=== PATIENT | male | born 1955 | race African-American/Black ===

== ENCOUNTER 2019-08-25 10:26 | Inpatient (IN) | payer MEDICAID, OTHER ==
[2019-08-25] VITALS (10 sets, daily range): BP systolic 114–140; BP diastolic 62–93
[~2019-08-25] VITALS: Ht 175.3 cm; Wt 59.0 kg
[2019-08-25 11:36] LABS: BASOPHILS % 0.8 % (0.0-2.0); EOSINOPHILS % 0.1 % (0.0-5.0); LYMPHOCYTES % 18.8 % (20.0-50.0); MEAN CORPUSCULAR HEMOGLOBIN 25.5 pg (28.0-32.0); MEAN CORPUSCULAR VOLUME 78.3 fL (80.0-94.0); MEAN PLATELET VOLUME 6.7 fl (7.4-10.4); MONOCYTES % 4.4 % (2.0-8.0); NEUTROPHILS % 75.9 % (40.0-76.0); PLATELET 395 x1000/uL (130-400); RED BLOOD CELL COUNT 2.58 mill/uL (4.7-6.1); RED CELL DISTRIBUTION WIDTH 19.9 % (11.6-14.6)
[2019-08-25 11:40] LABS: CHLORIDE 100 mEq/L (98-107)
[2019-08-25 11:49] LABS: HEMATOCRIT. 20.2 % (42.0-52.0); HEMOGLOBIN. 6.6 g/dL (14.0-18.0)
[2019-08-25] MEDS ORDERED: PANTOPRAZOLE SODIUM 40 MG/VIAL IV NR (13:30)
[2019-08-25 14:26] LABS: CLARITY URINE CLEAR (CLEAR); COLOR URINE YELLOW (YELLOW); KETONES URINE NEGATIVE (NEGATIVE); LEUKOCYTE ESTERASE URINE TRACE (NEGATIVE); NITRITE URINE NEGATIVE (NEGATIVE); OCCULT BLOOD URINE NEGATIVE (NEGATIVE); PH URINE 5.5 (4.5-8.0); PROTEIN URINE NEGATIVE (NEGATIVE); SPECIFIC GRAVITY URINE 1.023 (1.005-1.030); UROBILINOGEN URINE 0.2 E.U./dL (0.2-1.0)
[2019-08-25] MEDS ORDERED: MORPHINE SULFATE 2 MG/ML CPJ (NOT FOR IM USE) IV PRN (14:45)
[2019-08-25] MEDS ORDERED: ONDANSETRON HCL 4MG/2ML INJ IV PRN (14:45)
[2019-08-25 14:48] LABS: *AMPHETAMINES SCREEN URINE NEGATIVE (NEGATIVE); *BARBITURATES SCREEN URINE NEGATIVE (NEGATIVE); *BENZODIAZEPINES SCREEN URINE PRESUMTIVE POSITIVE (NEGATIVE); *COCAINE SCREEN URINE NEGATIVE (NEGATIVE); METHADONE URINE SCREEN NEGATIVE (NEGATIVE); OPIATES URINE SCREEN PRESUMTIVE POSITIVE (NEGATIVE)
[2019-08-25 14:49] LABS: CANNABINOID URINE SCREEN NEGATIVE (NEGATIVE); PHENCYCLIDINE URINE SCREEN PRESUMTIVE POSITIVE (NEGATIVE)
[2019-08-25] MEDS ORDERED: PANTOPRAZOLE 80 MG in SODIUM CHLORIDE 0.9% 100 ML IV SCH (15:00)
[2019-08-25] MEDS: PANTOPRAZOLE 80 MG in SODIUM CHLORIDE 0.9% 100 ML IV SCH ×2 (15:29→17:42)
[2019-08-25 15:42] LABS: TOTAL IRON BINDING CAPACITY 327 ug/dL (250-450)
[2019-08-25] MEDS: SODIUM CHLORIDE 0.45% 1,000 ML IV SCH (17:51)
[2019-08-25 19:48] LABS: HEMATOCRIT 22.5 % (42.0-52.0); HEMOGLOBIN 7.5 g/dL (14.0-18.0)
[2019-08-26] VITALS (12 sets, daily range): BP systolic 100–131; BP diastolic 37–79
[2019-08-26] MEDS: PANTOPRAZOLE 80 MG in SODIUM CHLORIDE 0.9% 100 ML IV SCH (01:18)
[2019-08-26 09:32] LABS: BASOPHILS % 0.6 % (0.0-2.0); HEMATOCRIT. 24.2 % (42.0-52.0); LYMPHOCYTES % 23.9 % (20.0-50.0); MEAN CORPUSCULAR HEMOGLOBIN 27.4 pg (28.0-32.0); MEAN CORPUSCULAR VOLUME 82.5 fL (80.0-94.0); MEAN PLATELET VOLUME 7.2 fl (7.4-10.4); NEUTROPHILS % 68.5 % (40.0-76.0); PLATELET 290 x1000/uL (130-400); RED BLOOD CELL COUNT 2.93 mill/uL (4.7-6.1); RED CELL DISTRIBUTION WIDTH 18.5 % (11.6-14.6)
[2019-08-26] MEDS: SODIUM CHLORIDE 0.45% 1,000 ML IV SCH (09:33)
[2019-08-26 09:40] LABS: CHLORIDE 100 mEq/L (98-107)
[2019-08-26] MEDS ORDERED: HYDR25TA PO (12:48)
[2019-08-26] MEDS ORDERED: CEPH750C7 PO (12:48)
[2019-08-26] MEDS ORDERED: AMLO5TAB88 PO (12:48)
[2019-08-26] MEDS ORDERED: PANT40SU MT (13:42)
[2019-08-26] MEDS ORDERED: SUCR1TAB30 MT (13:43)
[2019-08-26] MEDS ORDERED: SUCRALFATE 1 G/10 ML UDC PO SCH (14:00)
[2019-08-26] MEDS ORDERED: PANTOPRAZOLE SODIUM 40 MG/VIAL IV SCH (17:00)
[2019-08-26] MEDS: PANTOPRAZOLE SODIUM 40 MG/VIAL IV SCH (21:53)
[2019-08-26] MEDS: ACETAMINOPHEN 650MG/20.3ML UDC PO PRN (21:57)
[2019-08-27] VITALS (14 sets, daily range): BP systolic 92–117; BP diastolic 43–79
[2019-08-27] MEDS: SODIUM CHLORIDE 0.45% 1,000 ML IV SCH (02:05)
[2019-08-27] MEDS ORDERED: MORPHINE SULFATE 2 MG/ML CPJ (NOT FOR IM USE) IV NR (03:25)
[2019-08-27] MEDS: PANTOPRAZOLE SODIUM 40 MG/VIAL IV SCH ×2 (09:51→20:28)
[2019-08-27] MEDS: SUCRALFATE 1G TABLET PO SCH ×3 (11:50→20:29)
[2019-08-27] MEDS ORDERED: ONDANSETRON HCL 4MG/2ML INJ IV PRN (14:30)
[2019-08-27] MEDS ORDERED: HYDROMORPHONE HCL/PF 2MG/ML CPJ IV PRN (14:30)
[2019-08-27] MEDS ORDERED: MEPERIDINE HCL/PF 25MG/ML CPJ IV PRN (14:30)
[2019-08-27] MEDS ORDERED: MORPHINE SULFATE 2 MG/ML CPJ (NOT FOR IM USE) IV PRN (14:30)
[2019-08-27] MEDS ORDERED: PROPOFOL 200MG/20ML VIAL IV ONE (14:35)
[2019-08-27] MEDS ORDERED: MIDAZOLAM HCL 2 MG/2 ML VIAL ONE (14:35)
[2019-08-27] MEDS ORDERED: SUCCINYLCHOLINE CHLORIDE 200MG/10ML IV ONE (14:35)
[2019-08-27] MEDS ORDERED: ALBUMIN HUMAN 12.5G/250ML (5%) IV ONE (14:38)
[2019-08-27] MEDS: SODIUM CHLORIDE 0.9% 1,000 ML IV NR (16:47)
[2019-08-27] MEDS: ACETAMINOPHEN 650MG/20.3ML UDC PO PRN (20:29)
[2019-08-27 21:25] LABS: BASOPHILS % 0.5 % (0.0-2.0); EOSINOPHILS % 0.7 % (0.0-5.0); LYMPHOCYTES % 21.2 % (20.0-50.0); MEAN CORPUSCULAR VOLUME 84.4 fL (80.0-94.0); MEAN PLATELET VOLUME 6.6 fl (7.4-10.4); MONOCYTES % 7.2 % (2.0-8.0); NEUTROPHILS % 70.4 % (40.0-76.0); PLATELET 244 x1000/uL (130-400); RED BLOOD CELL COUNT 1.65 mill/uL (4.7-6.1); RED CELL DISTRIBUTION WIDTH 18.6 % (11.6-14.6)
[2019-08-27 21:35] LABS: CHLORIDE 106 mEq/L (98-107); PROTHROMBIN TIME 10.8 sec (9.6-11.0)
[2019-08-27 21:49] LABS: HEMOGLOBIN. 4.6 g/dL (14.0-18.0)
[2019-08-27 21:50] LABS: HEMATOCRIT. 13.9 % (42.0-52.0)
[2019-08-27] MEDS ORDERED: POTASSIUM CHLORIDE 20MEQ TABLET SR PO NR (23:00)
[2019-08-28] VITALS (25 sets, daily range): BP systolic 2–140; BP diastolic 21–75
[2019-08-28] MEDS: SODIUM CHLORIDE 0.9% 1,000 ML IV NR ×2 (06:20→07:00)
[2019-08-28] MEDS ORDERED: DEXT 5%/0.45% NACL 500ML 1,000 ML IV ONE (06:45)
[2019-08-28] MEDS: SUCRALFATE 1G TABLET PO SCH ×3 (06:50→15:00)
[2019-08-28] MEDS ORDERED: DEXT 5%/0.45% NACL 1000ML 1,000 ML IV NR (07:15)
[2019-08-28 08:41] LABS: CHLORIDE 112 mEq/L (98-107)
[2019-08-28] MEDS: PANTOPRAZOLE SODIUM 40 MG/VIAL IV SCH (09:04)
[2019-08-28 09:45] LABS: BASOPHILS % 0.3 % (0.0-2.0); EOSINOPHILS % 0.2 % (0.0-5.0); LYMPHOCYTES % 10.6 % (20.0-50.0); MEAN CORPUSCULAR HEMOGLOBIN 28.9 pg (28.0-32.0); MEAN CORPUSCULAR VOLUME 89.5 fL (80.0-94.0); MEAN PLATELET VOLUME 6.9 fl (7.4-10.4); MONOCYTES % 7.2 % (2.0-8.0); NEUTROPHILS % 81.7 % (40.0-76.0); PLATELET 206 x1000/uL (130-400); RED BLOOD CELL COUNT 1.51 mill/uL (4.7-6.1); RED CELL DISTRIBUTION WIDTH 16.5 % (11.6-14.6)
[2019-08-28 09:53] LABS: HEMOGLOBIN. 4.4 g/dL (14.0-18.0)
[2019-08-28 09:54] LABS: HEMATOCRIT. 13.5 % (42.0-52.0)
[2019-08-28] MEDS ORDERED: POTASSIUM CHLORIDE 20MEQ/PACKET PO NR (12:57)
[2019-08-28] MEDS: METOCLOPRAMIDE HCL 10MG/2ML VIAL IV SCH ×2 (14:51→18:00)
[2019-08-28] MEDS ORDERED: IRON SUCROSE COMPLEX 100 MG/5 ML ML IV SCH (15:30)
== END 2019-08-28 19:00 | disposition left against medical advice (07) | DRG 241 ==
LOC: ER 10:26 → 3WST 14:46 → ENRESERV 14:54 → CVICU 08-28 13:29
PROVIDERS: ADMIT Family Medicine; ATTEND Family Medicine
PROC: 30233N1 Transfusion of Nonautologous Red Blood Cells into Peripheral Vein, Percutaneous Approach (ICD-10-PCS; principal; 2019-08-25)
PROC: 0DB68ZX Excision of Stomach, Via Natural or Artificial Opening Endoscopic, Diagnostic (ICD-10-PCS; 2019-08-27)
PROC: 30233K1 Transfusion of Nonautologous Frozen Plasma into Peripheral Vein, Percutaneous Approach (ICD-10-PCS; 2019-08-28)
DX: K26.4 Chronic or unspecified duodenal ulcer with hemorrhage (principal); E87.1 Hypo-osmolality and hyponatremia; E44.0 Moderate protein-calorie malnutrition; D50.9 Iron deficiency anemia, unspecified; I10 Essential (primary) hypertension; I95.9 Hypotension, unspecified; D50.0 Iron deficiency anemia secondary to blood loss (chronic); R73.9 Hyperglycemia, unspecified; K29.80 Duodenitis without bleeding; Z79.899 Other long term (current) drug therapy; Z87.11 Personal history of peptic ulcer disease; Z71.51 Drug abuse counseling and surveillance of drug abuser; Z68.1 Body mass index [BMI] 19.9 or less, adult; K29.71 Gastritis, unspecified, with bleeding
CPT/HCPCS: 36415; 71045; 73030; 74018; 80048; 80053; 80305; 81003; 82607; 82728; 82746; 82962; 83540; 83550; 83880; 84134; 84484; 85014; 85018; 85025; 85049; 85384; 86850; 86900; 86920; 86927; 88305; 88313; 93005; 99285; C9113; J0330; J2250; J2270; J2405; J2704; J2765; J7050; P9016; P9017; P9041

== ENCOUNTER 2019-08-29 13:05 | Inpatient (IN) | payer MEDICAID, OTHER ==
[~2019-08-29] VITALS: Ht 177.8 cm; Wt 80.7 kg
[~2019-08-29 13:05] MED LIST: AMLO5TAB88 PO; CEPH750C7 PO; HYDR25TA PO; PANT40SU MT; SUCR1TAB30 MT
[2019-08-29] MEDS ORDERED: SODIUM CHLORIDE 0.9% 1,000 ML IV ONE (13:22)
[2019-08-29 14:15] LABS: BASOPHILS % 0.4 % (0.0-2.0); LYMPHOCYTES % 17.7 % (20.0-50.0); MEAN CORPUSCULAR HEMOGLOBIN 30.5 pg (28.0-32.0); MEAN CORPUSCULAR VOLUME 92.8 fL (80.0-94.0); MEAN PLATELET VOLUME 7.6 fl (7.4-10.4); MONOCYTES % 5.3 % (2.0-8.0); NEUTROPHILS % 76.6 % (40.0-76.0); PLATELET 182 x1000/uL (130-400); RED BLOOD CELL COUNT 1.26 mill/uL (4.7-6.1); RED CELL DISTRIBUTION WIDTH 15.5 % (11.6-14.6)
[2019-08-29 14:25] LABS: CHLORIDE 112 mEq/L (98-107); HEMATOCRIT. 11.7 % (42.0-52.0); HEMOGLOBIN. 3.8 g/dL (14.0-18.0)
[2019-08-29] MEDS ORDERED: LORAZEPAM 2MG/ML CPJ IV ONE ×2 (14:45→16:45)
[2019-08-29 14:46] LABS: INR 1.4; PROTHROMBIN TIME 14.1 sec (9.6-11.0)
[2019-08-29] MEDS ORDERED: PIPERACILLIN/TAZ 3.375G PREMIX 50 ML IV NR (15:30)
[2019-08-29] MEDS ORDERED: DEXT 5%/0.45% NACL 1000ML 1,000 ML IV SCH (15:30)
[2019-08-29] MEDS ORDERED: ACETAMINOPHEN 325MG TABLET PO PRN (15:30)
[2019-08-29] MEDS ORDERED: HALOPERIDOL LACTATE 5MG/ML VIAL IM PRN (16:00)
[2019-08-29] MEDS: LORAZEPAM 2MG/ML CPJ IV PRN ×2 (16:15→23:33)
[2019-08-29] MEDS: SODIUM CHLORIDE 0.9% 1,000 ML IV NR ×2 (17:21→18:55)
[2019-08-29] MEDS ORDERED: MIDAZOLAM HCL 2 MG/2 ML VIAL IV ONE (18:00)
[2019-08-29] MEDS ORDERED: ETOMIDATE 2MG/ML 10ML VIAL IV ONE (18:00)
[2019-08-29] MEDS ORDERED: SUCCINYLCHOLINE CHLORIDE 200MG/10ML IV ONE (18:00)
[2019-08-29] MEDS ORDERED: MIDAZOLAM HCL 50 MG in DEXTROSE 5% WATER 40 ML IV ONE (18:00)
[2019-08-29] MEDS ORDERED: MIDAZOLAM HCL 100 MG in DEXT 5% WATER 100 ML IV ONE (18:30)
[2019-08-29] MEDS ORDERED: MIDAZOLAM HCL 100 MG in DEXT 5% WATER 80 ML IV ONE (18:30)
[2019-08-29] MEDS: SUCRALFATE 1 G/10 ML UDC PO SCH (18:52)
[2019-08-29] MEDS: PANTOPRAZOLE SODIUM 40 MG/VIAL IV SCH (21:29)
[2019-08-29] MEDS: IPRATROPIUM/ALBUTEROL 0.5-3(2.5)MG/3ML NEB HHN SCH (21:45)
[2019-08-29] MEDS ORDERED: FENTANYL CITRATE/PF 500 MCG in SODIUM CHLORIDE 0.9% 40 ML IV PRN (21:45)
[2019-08-29] MEDS ORDERED: EPINEPHRINE 1 MG in SODIUM CHLORIDE 0.9% 249 ML IV PRN ×4 (21:45)
[2019-08-29] MEDS ORDERED: IPRATROPIUM/ALBUTEROL 0.5-3(2.5)MG/3ML NEB HHN PRN (21:45)
[2019-08-29] MEDS ORDERED: PIPERACILLIN/TAZOBACTAM 3.375 G in DEXT 5% WATER 100 ML IV SCH (22:00)
[2019-08-29] MEDS ORDERED: MIDAZOLAM HCL 100 MG in DEXT 5% WATER 80 ML IV PRN (22:00)
[2019-08-29 23:40] LABS: BG BASE EXCESS -20.5 mmol/L (-2.0-2.0); BG CARBOXYHEMOGLOBIN 0.5 % (0.5-1.5); BG DEOXYHEMOGLOBIN 18.4 % (0.0-5.0); BG METHEMOGLOBIN 0.2 % (0.0-1.5); BG OXYGEN SATURATION 81.5 % (92.0-98.5); BG OXYHEMOGLOBIN 80.9 % (94.0-97.0); BG PCO2 28.4 mmHg (35.0-45.0); BG PO2 49.2 mmHg (75.0-100.0); BG SAMPLE SITE LEFT RADIAL; BG TIDAL VOLUME(mL) 500 mL; BG TOTAL HEMOGLOBIN 8.6 g/dL (12.0-18.0); BG VENT MODE VENT - A/C; BG VENT RATE 16 set
[2019-08-30] VITALS (57 sets, daily range): BP systolic 81–157; BP diastolic 24–110
[2019-08-30 01:08] LABS: CHLORIDE 120 mEq/L (98-107)
[2019-08-30] MEDS ORDERED: SODIUM BICARBONATE 8.4% 1 MEQ/ML 50ML SYR IV NR (01:30)
[2019-08-30] MEDS ORDERED: DEXTROSE 50% WATER 50ML SYRINGE IV ONE (04:49)
[2019-08-30 05:28] LABS: HEMATOCRIT. 23.1 % (42.0-52.0); HEMOGLOBIN. 7.9 g/dL (14.0-18.0); MEAN CORPUSCULAR HEMOGLOBIN 31.3 pg (28.0-32.0); MEAN CORPUSCULAR VOLUME 91.6 fL (80.0-94.0); MEAN PLATELET VOLUME 9.1 fl (7.4-10.4); RED BLOOD CELL COUNT 2.52 mill/uL (4.7-6.1); RED CELL DISTRIBUTION WIDTH 14.4 % (11.6-14.6)
[2019-08-30 05:35] LABS: PLATELET 50 x1000/uL (130-400)
[2019-08-30 05:40] LABS: HEPATITIS B SURFACE ANTIGEN NEGATIVE
[2019-08-30 05:40] LABS: D-DIMER 2.62 mg/L FEU (<0.50); INR 1.5; PARTIAL THROMBOPLASTIN TIME 42.4 sec (23.4-31.0); PROTHROMBIN TIME 15.8 sec (9.6-11.0)
[2019-08-30 05:41] LABS: HEPATITIS A AB IGM NEGATIVE (NEGATIVE)
[2019-08-30 05:46] LABS: HEMATOCRIT. 26.8 % (42.0-52.0); HEMOGLOBIN. 8.9 g/dL (14.0-18.0); MEAN CORPUSCULAR HEMOGLOBIN 31.8 pg (28.0-32.0); MEAN CORPUSCULAR VOLUME 93.9 fL (80.0-94.0); RED BLOOD CELL COUNT 2.86 mill/uL (4.7-6.1)
[2019-08-30 05:47] LABS: MEAN PLATELET VOLUME 8.4 fl (7.4-10.4); PLATELET 54 x1000/uL (130-400); RED CELL DISTRIBUTION WIDTH 14.7 % (11.6-14.6)
[2019-08-30] MEDS: LORAZEPAM 2MG/ML CPJ IV PRN (06:51)
[2019-08-30] MEDS ORDERED: LORAZEPAM 2MG/ML CPJ ONE (06:54)
[2019-08-30 08:53] LABS: BG BASE EXCESS -10.1 mmol/L (-2.0-2.0); BG CARBOXYHEMOGLOBIN 0.3 % (0.5-1.5); BG DEOXYHEMOGLOBIN 1.9 % (0.0-5.0); BG FRACTION INSPIRED OXYGEN 50; BG HCO3 ACT 15.2 mmol/L (22.0-26.0); BG METHEMOGLOBIN 0.3 % (0.0-1.5); BG OXYGEN SATURATION 98.1 % (92.0-98.5); BG OXYHEMOGLOBIN 97.5 % (94.0-97.0); BG PCO2 31.2 mmHg (35.0-45.0); BG PH 7.305 (7.350-7.450); BG PO2 129.6 mmHg (75.0-100.0); BG SAMPLE SITE RIGHT BRACHIAL; BG TIDAL VOLUME(mL) 500 mL; BG TOTAL HEMOGLOBIN 10.1 g/dL (12.0-18.0); BG VENT MODE VENT - A/C; BG VENT RATE 20 set
[2019-08-30] MEDS: IPRATROPIUM/ALBUTEROL 0.5-3(2.5)MG/3ML NEB HHN SCH ×3 (09:20→19:57)
[2019-08-30 10:00] LABS: NUCLEATED RED BLOOD CELLS 18 /100 WBC; PLATELET ESTIMATE MARKEDLY DECREASED
[2019-08-30] MEDS ORDERED: PIPERACILLIN/TAZOBACTAM 3.375 G in DEXT 5% WATER 100 ML IV SCH (10:00)
[2019-08-30] MEDS: PANTOPRAZOLE SODIUM 40 MG/VIAL IV SCH (10:12)
[2019-08-30] MEDS: PHYTONADIONE 10MG/ML AMP SUBCUT SCH (10:22)
[2019-08-30] MEDS ORDERED: VASOPRESSIN 10 UNIT in SODIUM CHLORIDE 0.9% 99.5 ML IV PRN (10:30)
[2019-08-30 10:41] LABS: HEMATOCRIT. 29.7 % (42.0-52.0); HEMOGLOBIN. 10.2 g/dL (14.0-18.0); MEAN CORPUSCULAR HEMOGLOBIN 31.8 pg (28.0-32.0); MEAN CORPUSCULAR VOLUME 92.3 fL (80.0-94.0); MEAN PLATELET VOLUME 8.1 fl (7.4-10.4); RED BLOOD CELL COUNT 3.21 mill/uL (4.7-6.1); RED CELL DISTRIBUTION WIDTH 14.5 % (11.6-14.6)
[2019-08-30 10:43] LABS: PLATELET 49 x1000/uL (130-400)
[2019-08-30] MEDS: DEXT 5%/0.45% NACL 1000ML 1,000 ML IV SCH ×2 (11:39→21:52)
[2019-08-30] MEDS ORDERED: EPINEPHRINE 0.1MG/ML (1:10,000) 10ML SYR ONE (11:48)
[2019-08-30] MEDS ORDERED: ROCURONIUM BROMIDE 10MG/ML VIAL 5ML IV ONE (11:56)
[2019-08-30] MEDS ORDERED: ETOMIDATE 2MG/ML 10ML VIAL IV ONE (11:56)
[2019-08-30 11:58] LABS: NUCLEATED RED BLOOD CELLS 8 /100 WBC; PLATELET ESTIMATE MARKEDLY DECREASED
[2019-08-30] MEDS ORDERED: SODIUM CHLORIDE 0.9% 500 ML IV ONE (12:00)
[2019-08-30] MEDS ORDERED: METOCLOPRAMIDE HCL 10MG/2ML VIAL IV NR (12:00)
[2019-08-30] MEDS ORDERED: LIDOCAINE HCL 1% 20ML VIAL (Pyxis) INJ ONE (12:09)
[2019-08-30 12:13] LABS: BG BASE EXCESS -9.1 mmol/L (-2.0-2.0); BG CARBOXYHEMOGLOBIN 0.3 % (0.5-1.5); BG FRACTION INSPIRED OXYGEN 50; BG HCO3 ACT 14.9 mmol/L (22.0-26.0); BG METHEMOGLOBIN 0.1 % (0.0-1.5); BG OXYHEMOGLOBIN 95.6 % (94.0-97.0); BG PH 7.375 (7.350-7.450); BG PO2 86.8 mmHg (75.0-100.0); BG SAMPLE SITE RIGHT RADIAL; BG TIDAL VOLUME(mL) 500 mL; BG TOTAL HEMOGLOBIN 9.1 g/dL (12.0-18.0); BG VENT MODE VENT - A/C; BG VENT RATE 22 set
[2019-08-30] MEDS ORDERED: EPINEPHRINE 1:1000 1 MG/ML AMP INJ ONE (12:40)
[2019-08-30 13:06] LABS: NUCLEATED RED BLOOD CELLS 45 /100 WBC; PLATELET ESTIMATE MARKEDLY DECREASED
[2019-08-30] MEDS: CEFEPIME 1,000 MG in DEXTROSE 5% WATER 50 ML IV SCH ×2 (13:33→23:42)
[2019-08-30] MEDS: SODIUM BICARBONATE 150 MEQ in DEXTROSE 5% WATER 1,000 ML IV SCH ×2 (13:35→23:42)
[2019-08-30 15:01] LABS: CLARITY URINE CLEAR (CLEAR); COLOR URINE YELLOW (YELLOW); KETONES URINE NEGATIVE (NEGATIVE); LEUKOCYTE ESTERASE URINE TRACE (NEGATIVE); NITRITE URINE NEGATIVE (NEGATIVE); OCCULT BLOOD URINE 2+ (NEGATIVE); PROTEIN URINE 1+ (NEGATIVE); UROBILINOGEN URINE 0.2 E.U./dL (0.2-1.0)
[2019-08-30 15:24] LABS: *AMPHETAMINES SCREEN URINE NEGATIVE (NEGATIVE); *BARBITURATES SCREEN URINE NEGATIVE (NEGATIVE); *BENZODIAZEPINES SCREEN URINE PRESUMTIVE POSITIVE (NEGATIVE); *COCAINE SCREEN URINE NEGATIVE (NEGATIVE); CANNABINOID URINE SCREEN NEGATIVE (NEGATIVE); METHADONE URINE SCREEN NEGATIVE (NEGATIVE); OPIATES URINE SCREEN PRESUMTIVE POSITIVE (NEGATIVE); PHENCYCLIDINE URINE SCREEN NEGATIVE (NEGATIVE)
[2019-08-30 17:01] LABS: MEAN CORPUSCULAR HEMOGLOBIN 31.6 pg (28.0-32.0); MEAN CORPUSCULAR VOLUME 93.3 fL (80.0-94.0); PLATELET 94 x1000/uL (130-400); RED BLOOD CELL COUNT 2.12 mill/uL (4.7-6.1); RED CELL DISTRIBUTION WIDTH 14.4 % (11.6-14.6)
[2019-08-30 17:04] LABS: HEMOGLOBIN. 6.7 g/dL (14.0-18.0)
[2019-08-30 17:06] LABS: HEMATOCRIT. 19.8 % (42.0-52.0)
[2019-08-30 17:13] LABS: INR 1.5; PROTHROMBIN TIME 15.3 sec (9.6-11.0)
[2019-08-30 17:38] LABS: PLATELET ESTIMATE DECREASED
[2019-08-30] MEDS: SUCRALFATE 1 G/10 ML UDC PO SCH ×2 (17:49→21:00)
[2019-08-30] MEDS: METOCLOPRAMIDE HCL 10MG/2ML VIAL IV SCH (23:44)
[2019-08-31] VITALS (112 sets, daily range): BP systolic 78–188; BP diastolic 44–103
[2019-08-31 01:06] LABS: HEMOGLOBIN. 7.8 g/dL (14.0-18.0); MEAN CORPUSCULAR HEMOGLOBIN 31.4 pg (28.0-32.0); MEAN CORPUSCULAR VOLUME 92.4 fL (80.0-94.0); MEAN PLATELET VOLUME 8.6 fl (7.4-10.4); PLATELET 75 x1000/uL (130-400); RED BLOOD CELL COUNT 2.49 mill/uL (4.7-6.1); RED CELL DISTRIBUTION WIDTH 14.6 % (11.6-14.6)
[2019-08-31 01:35] LABS: NUCLEATED RED BLOOD CELLS 2 /100 WBC
[2019-08-31 01:36] LABS: PLATELET ESTIMATE DECREASED
[2019-08-31] MEDS: IPRATROPIUM/ALBUTEROL 0.5-3(2.5)MG/3ML NEB HHN SCH ×4 (01:36→19:50)
[2019-08-31] MEDS: LORAZEPAM 2MG/ML CPJ IV PRN (03:22)
[2019-08-31] MEDS: FENTANYL 1,000 MCG in SODIUM CHLORIDE 0.9% 100 ML IV PRN (04:26)
[2019-08-31] MEDS: MIDAZOLAM HCL 100 MG in DEXT 5% WATER 80 ML IV PRN (04:27)
[2019-08-31 05:10] LABS: HIV SCREEN 4G Non Reactive (Non Reactive)
[2019-08-31 07:22] LABS: BG BASE EXCESS -4.6 mmol/L (-2.0-2.0); BG CARBOXYHEMOGLOBIN 0.3 % (0.5-1.5); BG FRACTION INSPIRED OXYGEN 100; BG HCO3 ACT 19.1 mmol/L (22.0-26.0); BG METHEMOGLOBIN 0.3 % (0.0-1.5); BG OXYHEMOGLOBIN 98.4 % (94.0-97.0); BG PCO2 28.6 mmHg (35.0-45.0); BG PH 7.443 (7.350-7.450); BG PO2 344.1 mmHg (75.0-100.0); BG SAMPLE SITE RIGHT RADIAL; BG TOTAL HEMOGLOBIN 5.9 g/dL (12.0-18.0); BG VENT MODE VENT - A/C; BG VENT RATE 22 set
[2019-08-31] MEDS: PANTOPRAZOLE SODIUM 40 MG/VIAL IV SCH ×2 (08:20→21:08)
[2019-08-31] MEDS: SUCRALFATE 1 G/10 ML UDC PO SCH ×4 (08:21→21:09)
[2019-08-31] MEDS: PHYTONADIONE 10MG/ML AMP SUBCUT SCH (08:21)
[2019-08-31] MEDS: METOCLOPRAMIDE HCL 10MG/2ML VIAL IV SCH ×4 (08:21→23:17)
[2019-08-31] MEDS: CEFEPIME 1,000 MG in DEXTROSE 5% WATER 50 ML IV SCH (08:22)
[2019-08-31 08:52] LABS: INR 1.5; PROTHROMBIN TIME 15.3 sec (9.6-11.0)
[2019-08-31 08:58] LABS: MEAN CORPUSCULAR HEMOGLOBIN 30.5 pg (28.0-32.0); MEAN PLATELET VOLUME 8.8 fl (7.4-10.4); RED BLOOD CELL COUNT 1.87 mill/uL (4.7-6.1); RED CELL DISTRIBUTION WIDTH 14.6 % (11.6-14.6)
[2019-08-31 09:15] LABS: HEMATOCRIT. 16.8 % (42.0-52.0); HEMOGLOBIN. 5.7 g/dL (14.0-18.0); PLATELET 44 x1000/uL (130-400)
[2019-08-31] MEDS ORDERED: NORMAL SALINE 0.9% 10 ML SYR ONE (09:45)
[2019-08-31] MEDS ORDERED: BUPIVACAINE HCL 0.5% (5MG/ML) 50ML ONE (09:45)
[2019-08-31] MEDS ORDERED: BACITRACIN 50,000 UNITS/VIAL ONE (09:45)
[2019-08-31] MEDS ORDERED: ROCURONIUM BROMIDE 10MG/ML VIAL 5ML IV ONE ×2 (10:22→11:19)
[2019-08-31] MEDS ORDERED: MIDAZOLAM HCL 2 MG/2 ML VIAL ONE (10:22)
[2019-08-31 10:43] LABS: NUCLEATED RED BLOOD CELLS 1 /100 WBC; PLATELET ESTIMATE MARKEDLY DECREASED
[2019-08-31] MEDS ORDERED: CALCIUM CHLORIDE 1GM/10ML SYR IV ONE (11:05)
[2019-08-31] MEDS ORDERED: METHYLENE BLUE 50 MG/10 ML AMP IV ONE (11:34)
[2019-08-31 12:49] LABS: HEMATOCRIT. 26.7 % (42.0-52.0); HEMOGLOBIN. 9.1 g/dL (14.0-18.0); MEAN CORPUSCULAR VOLUME 91.4 fL (80.0-94.0); MEAN PLATELET VOLUME 9.2 fl (7.4-10.4); RED BLOOD CELL COUNT 2.92 mill/uL (4.7-6.1); RED CELL DISTRIBUTION WIDTH 14.4 % (11.6-14.6)
[2019-08-31] MEDS ORDERED: MAGNESIUM 4 G PREMIX 100 ML IV SCH (13:00)
[2019-08-31 13:04] LABS: INR 1.3; PROTHROMBIN TIME 13.2 sec (9.6-11.0)
[2019-08-31] MEDS: METRONIDAZOLE 500 MG PREMIX 100 ML IV SCH ×2 (13:05→21:09)
[2019-08-31 13:10] LABS: PLATELET 38 x1000/uL (130-400)
[2019-08-31 13:45] LABS: BG BASE EXCESS -8.6 mmol/L (-2.0-2.0); BG CARBOXYHEMOGLOBIN 0.3 % (0.5-1.5); BG DEOXYHEMOGLOBIN 1.3 % (0.0-5.0); BG FRACTION INSPIRED OXYGEN 100; BG HCO3 ACT 16.8 mmol/L (22.0-26.0); BG METHEMOGLOBIN 0.3 % (0.0-1.5); BG OXYGEN SATURATION 98.7 % (92.0-98.5); BG OXYHEMOGLOBIN 98.1 % (94.0-97.0); BG PCO2 34.4 mmHg (35.0-45.0); BG PH 7.307 (7.350-7.450); BG PO2 260.7 mmHg (75.0-100.0); BG SAMPLE SITE RIGHT RADIAL; BG TIDAL VOLUME(mL) 500 mL; BG TOTAL HEMOGLOBIN 9.3 g/dL (12.0-18.0); BG VENT MODE VENT - A/C; BG VENT RATE 22 set
[2019-08-31] MEDS ORDERED: CALCIUM GLUCONATE 1,000 MG in DEXT 5% WATER 90 ML IV NR (14:00)
[2019-08-31] MEDS ORDERED: HYDRALAZINE 20MG/ML VIAL IV PRN (14:00)
[2019-08-31] MEDS: SODIUM BICARBONATE 100 MEQ in DEXTROSE 5% WATER 1,000 ML IV SCH (14:42)
[2019-08-31 18:04] LABS: HEMATOCRIT. 23.4 % (42.0-52.0); HEMOGLOBIN. 8.1 g/dL (14.0-18.0); MEAN CORPUSCULAR HEMOGLOBIN 31.1 pg (28.0-32.0); MEAN CORPUSCULAR VOLUME 90.3 fL (80.0-94.0); MEAN PLATELET VOLUME 8.4 fl (7.4-10.4); PLATELET 58 x1000/uL (130-400); RED BLOOD CELL COUNT 2.59 mill/uL (4.7-6.1); RED CELL DISTRIBUTION WIDTH 14.5 % (11.6-14.6)
[2019-08-31 19:58] LABS: NUCLEATED RED BLOOD CELLS 3 /100 WBC; PLATELET ESTIMATE MARKEDLY DECREASED
[2019-08-31 20:52] LABS: NUCLEATED RED BLOOD CELLS 1 /100 WBC
[2019-08-31 20:53] LABS: PLATELET ESTIMATE MARKEDLY DECREASED
[2019-09-01] VITALS (135 sets, daily range): BP systolic 113–288; BP diastolic -16–85
[2019-09-01 00:50] LABS: HEMATOCRIT. 21.8 % (42.0-52.0); HEMOGLOBIN. 7.6 g/dL (14.0-18.0); MEAN CORPUSCULAR HEMOGLOBIN 31.1 pg (28.0-32.0); MEAN CORPUSCULAR VOLUME 89.4 fL (80.0-94.0); PLATELET 53 x1000/uL (130-400); RED BLOOD CELL COUNT 2.44 mill/uL (4.7-6.1); RED CELL DISTRIBUTION WIDTH 14.6 % (11.6-14.6)
[2019-09-01] MEDS: IPRATROPIUM/ALBUTEROL 0.5-3(2.5)MG/3ML NEB HHN SCH ×4 (01:10→20:29)
[2019-09-01 05:40] LABS: HEMOGLOBIN. 7.1 g/dL (14.0-18.0); MEAN CORPUSCULAR HEMOGLOBIN 30.9 pg (28.0-32.0); MEAN CORPUSCULAR VOLUME 90.3 fL (80.0-94.0); MEAN PLATELET VOLUME 8.5 fl (7.4-10.4); PLATELET 54 x1000/uL (130-400); RED BLOOD CELL COUNT 2.32 mill/uL (4.7-6.1); RED CELL DISTRIBUTION WIDTH 14.9 % (11.6-14.6)
[2019-09-01] MEDS: METRONIDAZOLE 500 MG PREMIX 100 ML IV SCH ×3 (05:50→21:10)
[2019-09-01] MEDS: SODIUM BICARBONATE 100 MEQ in DEXTROSE 5% WATER 1,000 ML IV SCH ×2 (05:50→16:26)
[2019-09-01] MEDS: METOCLOPRAMIDE HCL 10MG/2ML VIAL IV SCH ×4 (05:50→23:52)
[2019-09-01 05:59] LABS: PHOSPHORUS 5.5 mg/dL (2.5-4.9)
[2019-09-01 07:38] LABS: HEMATOCRIT. 20.9 % (42.0-52.0)
[2019-09-01] MEDS: FENTANYL 1,000 MCG in SODIUM CHLORIDE 0.9% 100 ML IV PRN (08:01)
[2019-09-01] MEDS: MIDAZOLAM HCL 100 MG in DEXT 5% WATER 80 ML IV PRN (08:01)
[2019-09-01] MEDS: PANTOPRAZOLE SODIUM 40 MG/VIAL IV SCH (08:48)
[2019-09-01] MEDS: PHYTONADIONE 10MG/ML AMP SUBCUT SCH (08:49)
[2019-09-01] MEDS: SUCRALFATE 1 G/10 ML UDC PO SCH ×4 (08:49→21:10)
[2019-09-01] MEDS: CEFEPIME 1,000 MG in DEXTROSE 5% WATER 50 ML IV SCH (08:49)
[2019-09-01 08:56] LABS: BG BASE EXCESS -2.6 mmol/L (-2.0-2.0); BG CARBOXYHEMOGLOBIN 0.3 % (0.5-1.5); BG DEOXYHEMOGLOBIN 1.9 % (0.0-5.0); BG FRACTION INSPIRED OXYGEN 40; BG HCO3 ACT 21.6 mmol/L (22.0-26.0); BG METHEMOGLOBIN 0.1 % (0.0-1.5); BG OXYGEN SATURATION 98.1 % (92.0-98.5); BG OXYHEMOGLOBIN 97.7 % (94.0-97.0); BG PCO2 34.6 mmHg (35.0-45.0); BG PH 7.414 (7.350-7.450); BG SAMPLE SITE A-LINE; BG TIDAL VOLUME(mL) 500 mL; BG VENT MODE VENT - A/C; BG VENT RATE 20 set
[2019-09-01] MEDS ORDERED: KCL 20MEQ/100ML PREMIX 100 ML IV SCH (09:00)
[2019-09-01 10:37] LABS: ATYPICAL LYMPHOCYTES 1; NUCLEATED RED BLOOD CELLS 2 /100 WBC; PLATELET ESTIMATE MARKEDLY DECREASED
[2019-09-01 13:12] LABS: NUCLEATED RED BLOOD CELLS 1 /100 WBC; PLATELET ESTIMATE MARKEDLY DECREASED
[2019-09-01 13:34] LABS: HEMATOCRIT. 27.4 % (42.0-52.0); HEMOGLOBIN. 9.5 g/dL (14.0-18.0); MEAN CORPUSCULAR HEMOGLOBIN 31.2 pg (28.0-32.0); MEAN CORPUSCULAR VOLUME 89.8 fL (80.0-94.0); MEAN PLATELET VOLUME 8.4 fl (7.4-10.4); RED BLOOD CELL COUNT 3.05 mill/uL (4.7-6.1); RED CELL DISTRIBUTION WIDTH 14.4 % (11.6-14.6)
[2019-09-01 13:39] LABS: PLATELET 41 x1000/uL (130-400)
[2019-09-01 14:12] LABS: PLATELET ESTIMATE MARKEDLY DECREASED
[2019-09-01] MEDS ORDERED: POTASSIUM CHLORIDE INJ 40 MEQ in DEXT 5% WATER 250 ML IV NR (17:00)
[2019-09-01] MEDS: DEXT 5%/0.9% NACL 1,000 ML IV SCH (17:44)
[2019-09-01 18:26] LABS: HEMATOCRIT. 27.3 % (42.0-52.0); HEMOGLOBIN. 9.4 g/dL (14.0-18.0); MEAN CORPUSCULAR HEMOGLOBIN 30.9 pg (28.0-32.0); MEAN CORPUSCULAR VOLUME 89.4 fL (80.0-94.0); MEAN PLATELET VOLUME 8.7 fl (7.4-10.4); RED BLOOD CELL COUNT 3.05 mill/uL (4.7-6.1); RED CELL DISTRIBUTION WIDTH 14.9 % (11.6-14.6)
[2019-09-01 18:54] LABS: PLATELET 43 x1000/uL (130-400)
[2019-09-01 20:11] LABS: PLATELET ESTIMATE MARKEDLY DECREASED
[2019-09-02] VITALS (64 sets, daily range): BP systolic 116–171; BP diastolic 51–83
[2019-09-02 01:01] LABS: HEMATOCRIT 26.7 % (42.0-52.0); HEMOGLOBIN 9.4 g/dL (14.0-18.0)
[2019-09-02] MEDS: IPRATROPIUM/ALBUTEROL 0.5-3(2.5)MG/3ML NEB HHN SCH ×4 (01:04→20:55)
[2019-09-02] MEDS: FENTANYL 1,000 MCG in SODIUM CHLORIDE 0.9% 100 ML IV PRN ×2 (05:19→21:12)
[2019-09-02] MEDS: METRONIDAZOLE 500 MG PREMIX 100 ML IV SCH ×2 (05:20→17:32)
[2019-09-02 05:50] LABS: HEMATOCRIT. 27.5 % (42.0-52.0); HEMOGLOBIN. 9.5 g/dL (14.0-18.0); MEAN CORPUSCULAR VOLUME 89.5 fL (80.0-94.0); MEAN PLATELET VOLUME 8.8 fl (7.4-10.4); RED BLOOD CELL COUNT 3.07 mill/uL (4.7-6.1); RED CELL DISTRIBUTION WIDTH 15.2 % (11.6-14.6)
[2019-09-02 05:55] LABS: PLATELET 44 x1000/uL (130-400)
[2019-09-02 06:21] LABS: PHOSPHORUS 5.2 mg/dL (2.5-4.9)
[2019-09-02] MEDS: METOCLOPRAMIDE HCL 10MG/2ML VIAL IV SCH ×3 (06:56→17:32)
[2019-09-02] MEDS: DEXT 5%/0.9% NACL 1,000 ML IV SCH ×2 (07:16→21:13)
[2019-09-02] MEDS: PANTOPRAZOLE SODIUM 40 MG/VIAL IV SCH ×2 (08:36→21:00)
[2019-09-02] MEDS: SUCRALFATE 1 G/10 ML UDC PO SCH ×4 (08:36→21:11)
[2019-09-02] MEDS: CEFEPIME 1,000 MG in DEXTROSE 5% WATER 50 ML IV SCH (08:37)
[2019-09-02 09:29] LABS: BG SAMPLE SITE RIGHT RADIAL; BG TIDAL VOLUME(mL) 500 mL; BG VENT MODE VENT - A/C
[2019-09-02 10:18] LABS: PLATELET ESTIMATE MARKEDLY DECREASED
[2019-09-02 12:43] LABS: HEMATOCRIT 29.1 % (42.0-52.0)
[2019-09-02 18:27] LABS: HEMATOCRIT 27.6 % (42.0-52.0); HEMOGLOBIN 9.6 g/dL (14.0-18.0)
[2019-09-02 18:43] LABS: BG FRACTION INSPIRED OXYGEN 40; BG PEEP (cmH2O) 5 cmH2O; BG VENT RATE 20 set
[2019-09-02 18:44] LABS: BG PCO2 28.1 mmHg (35.0-45.0); BG PH 7.423 (7.350-7.450); BG PO2 134.3 mmHg (75.0-100.0)
[2019-09-02 18:45] LABS: BG BASE EXCESS -5.7 mmol/L (-2.0-2.0); BG HCO3 ACT 17.9 mmol/L (22.0-26.0); BG TOTAL HEMOGLOBIN 8.3 g/dL (12.0-18.0)
[2019-09-02 18:46] LABS: BG CARBOXYHEMOGLOBIN 0.3 % (0.5-1.5); BG DEOXYHEMOGLOBIN 2.1 % (0.0-5.0); BG METHEMOGLOBIN 0.6 % (0.0-1.5); BG OXYGEN SATURATION 97.9 % (92.0-98.5)
[2019-09-03] VITALS (31 sets, daily range): BP systolic 114–157; BP diastolic 61–108
[2019-09-03] MEDS: METOCLOPRAMIDE HCL 10MG/2ML VIAL IV SCH ×5 (00:30→23:50)
[2019-09-03 00:52] LABS: HEMOGLOBIN 9.7 g/dL (14.0-18.0)
[2019-09-03] MEDS: MIDAZOLAM HCL 100 MG in DEXT 5% WATER 80 ML IV PRN (05:30)
[2019-09-03] MEDS: METRONIDAZOLE 500 MG PREMIX 100 ML IV SCH ×2 (05:31→17:04)
[2019-09-03 05:46] LABS: HEMATOCRIT. 28.8 % (42.0-52.0); HEMOGLOBIN. 9.9 g/dL (14.0-18.0); MEAN CORPUSCULAR VOLUME 90.6 fL (80.0-94.0); MEAN PLATELET VOLUME 9.1 fl (7.4-10.4); PLATELET 72 x1000/uL (130-400); RED BLOOD CELL COUNT 3.18 mill/uL (4.7-6.1); RED CELL DISTRIBUTION WIDTH 15.3 % (11.6-14.6)
[2019-09-03 05:58] LABS: CHLORIDE 113 mEq/L (98-107)
[2019-09-03 07:09] LABS: *CREATININE RANDOM URINE 53.9 mg/dL (Not Estab.)
[2019-09-03 07:45] LABS: PLATELET ESTIMATE DECREASED
[2019-09-03] MEDS: SUCRALFATE 1 G/10 ML UDC PO SCH ×4 (07:50→20:27)
[2019-09-03] MEDS: IPRATROPIUM/ALBUTEROL 0.5-3(2.5)MG/3ML NEB HHN SCH ×3 (08:21→20:16)
[2019-09-03] MEDS: CEFEPIME 1,000 MG in DEXTROSE 5% WATER 50 ML IV SCH (09:00)
[2019-09-03] MEDS: PANTOPRAZOLE SODIUM 40 MG/VIAL IV SCH ×2 (09:00→20:27)
[2019-09-03 09:27] LABS: BG BASE EXCESS -3.4 mmol/L (-2.0-2.0); BG CARBOXYHEMOGLOBIN 0.3 % (0.5-1.5); BG DEOXYHEMOGLOBIN 3.1 % (0.0-5.0); BG FRACTION INSPIRED OXYGEN 40; BG HCO3 ACT 21.7 mmol/L (22.0-26.0); BG METHEMOGLOBIN 0.3 % (0.0-1.5); BG OXYGEN SATURATION 96.9 % (92.0-98.5); BG OXYHEMOGLOBIN 96.3 % (94.0-97.0); BG PCO2 39.1 mmHg (35.0-45.0); BG PH 7.362 (7.350-7.450); BG PO2 99.9 mmHg (75.0-100.0); BG SAMPLE SITE RIGHT RADIAL; BG TIDAL VOLUME(mL) 500 mL; BG TOTAL HEMOGLOBIN 9.5 g/dL (12.0-18.0); BG VENT MODE VENT - A/C; BG VENT RATE 20 set
[2019-09-03 12:12] LABS: HEMATOCRIT 30.5 % (42.0-52.0); HEMOGLOBIN 10.3 g/dL (14.0-18.0)
[2019-09-03 12:37] LABS: BG BASE EXCESS -2.2 mmol/L (-2.0-2.0); BG CARBOXYHEMOGLOBIN 0.3 % (0.5-1.5); BG DEOXYHEMOGLOBIN 3.7 % (0.0-5.0); BG FRACTION INSPIRED OXYGEN 35; BG HCO3 ACT 21.9 mmol/L (22.0-26.0); BG METHEMOGLOBIN 0.1 % (0.0-1.5); BG OXYGEN SATURATION 96.3 % (92.0-98.5); BG OXYHEMOGLOBIN 95.9 % (94.0-97.0); BG PCO2 35.2 mmHg (35.0-45.0); BG PH 7.412 (7.350-7.450); BG PO2 87.8 mmHg (75.0-100.0); BG PRESSURE SUPPORT 8; BG SAMPLE SITE RIGHT RADIAL; BG TOTAL HEMOGLOBIN 10.4 g/dL (12.0-18.0); BG VENT MODE VENT - CPAP
[2019-09-03] MEDS: DEXT 5%/0.9% NACL 1,000 ML IV SCH (17:03)
[2019-09-03 18:58] LABS: HEMATOCRIT 29.8 % (42.0-52.0); HEMOGLOBIN 10.1 g/dL (14.0-18.0)
[2019-09-03] MEDS: MORPHINE SULFATE 2 MG/ML CPJ (NOT FOR IM USE) IV PRN (21:53)
[2019-09-03] MEDS: LORAZEPAM 2MG/ML CPJ IV PRN (21:53)
[2019-09-04] VITALS (20 sets, daily range): BP systolic 125–156; BP diastolic 63–92
[2019-09-04] MEDS: IPRATROPIUM/ALBUTEROL 0.5-3(2.5)MG/3ML NEB HHN SCH ×4 (01:36→20:23)
[2019-09-04] MEDS: MORPHINE SULFATE 2 MG/ML CPJ (NOT FOR IM USE) IV PRN ×3 (02:00→19:03)
[2019-09-04] MEDS: METRONIDAZOLE 500 MG PREMIX 100 ML IV SCH ×2 (05:55→18:53)
[2019-09-04] MEDS: METOCLOPRAMIDE HCL 10MG/2ML VIAL IV SCH ×3 (06:10→17:31)
[2019-09-04] MEDS: LORAZEPAM 2MG/ML CPJ IV PRN ×3 (08:22→19:50)
[2019-09-04] MEDS: PANTOPRAZOLE SODIUM 40 MG/VIAL IV SCH ×2 (08:56→19:50)
[2019-09-04] MEDS: CEFEPIME 1,000 MG in DEXTROSE 5% WATER 50 ML IV SCH (08:56)
[2019-09-04 09:24] LABS: HEMOGLOBIN. 10.1 g/dL (14.0-18.0); MEAN CORPUSCULAR HEMOGLOBIN 30.7 pg (28.0-32.0); MEAN CORPUSCULAR VOLUME 90.9 fL (80.0-94.0); MEAN PLATELET VOLUME 8.9 fl (7.4-10.4); PLATELET 122 x1000/uL (130-400); RED CELL DISTRIBUTION WIDTH 15.3 % (11.6-14.6)
[2019-09-04] MEDS: DEXT 5%/0.45% NACL KCL 10MEQ/L 1,000 ML IV SCH (11:07)
[2019-09-04] MEDS ORDERED: CLONIDINE HCL 0.2MG/24HR PATCH TD SCH (11:30)
[2019-09-04 12:20] LABS: PLATELET ESTIMATE SLIGHTLY DECREASED
[2019-09-04] MEDS: SUCRALFATE 1 G/10 ML UDC PO SCH ×4 (12:50→19:50)
[2019-09-04 12:58] LABS: HEMATOCRIT 28.3 % (42.0-52.0); HEMOGLOBIN 9.6 g/dL (14.0-18.0)
[2019-09-04] MEDS ORDERED: POTASSIUM CHLORIDE INJ 40 MEQ in DEXT 5% WATER 250 ML IV SCH (13:00)
[2019-09-04] MEDS: RISPERIDONE 0.5MG TABLET PO SCH ×2 (14:24→19:51)
[2019-09-04 18:36] LABS: HEMATOCRIT 33.5 % (42.0-52.0); HEMOGLOBIN 11.2 g/dL (14.0-18.0)
[2019-09-04] MEDS: ONDANSETRON HCL 4MG/2ML INJ IV PRN (19:50)
[2019-09-05] VITALS (12 sets, daily range): BP systolic 132–168; BP diastolic 71–118
[2019-09-05 00:53] LABS: HEMATOCRIT 34.4 % (42.0-52.0); HEMOGLOBIN 11.6 g/dL (14.0-18.0)
[2019-09-05] MEDS: IPRATROPIUM/ALBUTEROL 0.5-3(2.5)MG/3ML NEB HHN SCH ×4 (01:14→20:10)
[2019-09-05] MEDS: LORAZEPAM 2MG/ML CPJ IV PRN ×4 (02:04→22:29)
[2019-09-05] MEDS: DEXT 5%/0.45% NACL KCL 10MEQ/L 1,000 ML IV SCH ×3 (02:04→21:40)
[2019-09-05] MEDS: ONDANSETRON HCL 4MG/2ML INJ IV PRN (04:45)
[2019-09-05] MEDS: MORPHINE SULFATE 2 MG/ML CPJ (NOT FOR IM USE) IV PRN ×3 (04:46→22:30)
[2019-09-05] MEDS: METRONIDAZOLE 500 MG PREMIX 100 ML IV SCH ×2 (06:03→18:13)
[2019-09-05] MEDS: METOCLOPRAMIDE HCL 10MG/2ML VIAL IV SCH ×4 (06:03→18:13)
[2019-09-05 06:44] LABS: HEMOGLOBIN. 9.8 g/dL (14.0-18.0); MEAN CORPUSCULAR HEMOGLOBIN 30.4 pg (28.0-32.0); MEAN CORPUSCULAR VOLUME 89.6 fL (80.0-94.0); MEAN PLATELET VOLUME 8.5 fl (7.4-10.4); PLATELET 170 x1000/uL (130-400); RED BLOOD CELL COUNT 3.24 mill/uL (4.7-6.1); RED CELL DISTRIBUTION WIDTH 15.5 % (11.6-14.6)
[2019-09-05 06:55] LABS: CHLORIDE 118 mEq/L (98-107)
[2019-09-05 07:05] LABS: PHOSPHORUS 3.4 mg/dL (2.5-4.9)
[2019-09-05] MEDS: RISPERIDONE 0.5MG TABLET PO SCH ×2 (08:16→21:40)
[2019-09-05] MEDS: SUCRALFATE 1 G/10 ML UDC PO SCH ×4 (08:16→21:40)
[2019-09-05] MEDS: PANTOPRAZOLE SODIUM 40 MG/VIAL IV SCH ×2 (08:16→21:40)
[2019-09-05 10:36] LABS: PLATELET ESTIMATE NORMAL
[2019-09-05 12:48] LABS: HEMATOCRIT 30.4 % (42.0-52.0); HEMOGLOBIN 10.3 g/dL (14.0-18.0)
[2019-09-06] VITALS (13 sets, daily range): BP systolic 111–163; BP diastolic 74–101
[2019-09-06] MEDS: METOCLOPRAMIDE HCL 10MG/2ML VIAL IV SCH ×5 (01:14→23:24)
[2019-09-06] MEDS: IPRATROPIUM/ALBUTEROL 0.5-3(2.5)MG/3ML NEB HHN SCH ×4 (02:23→20:21)
[2019-09-06] MEDS: MORPHINE SULFATE 2 MG/ML CPJ (NOT FOR IM USE) IV PRN ×2 (05:05→09:01)
[2019-09-06] MEDS: LORAZEPAM 2MG/ML CPJ IV PRN (05:05)
[2019-09-06] MEDS: DEXT 5%/0.45% NACL KCL 10MEQ/L 1,000 ML IV SCH (06:14)
[2019-09-06 06:29] LABS: BASOPHILS % 0.5 % (0.0-2.0); EOSINOPHILS % 3.9 % (0.0-5.0); HEMATOCRIT. 27.4 % (42.0-52.0); HEMOGLOBIN. 9.4 g/dL (14.0-18.0); LYMPHOCYTES % 7.5 % (20.0-50.0); MEAN CORPUSCULAR HEMOGLOBIN 30.9 pg (28.0-32.0); MEAN PLATELET VOLUME 8.7 fl (7.4-10.4); MONOCYTES % 5.8 % (2.0-8.0); NEUTROPHILS % 82.3 % (40.0-76.0); PLATELET 179 x1000/uL (130-400); RED BLOOD CELL COUNT 3.05 mill/uL (4.7-6.1); RED CELL DISTRIBUTION WIDTH 15.2 % (11.6-14.6)
[2019-09-06 07:05] LABS: PHOSPHORUS 3.1 mg/dL (2.5-4.9)
[2019-09-06] MEDS: RISPERIDONE 0.5MG TABLET PO SCH ×2 (09:00→20:29)
[2019-09-06] MEDS: SUCRALFATE 1 G/10 ML UDC PO SCH ×4 (09:00→20:29)
[2019-09-06] MEDS: PANTOPRAZOLE SODIUM 40 MG/VIAL IV SCH ×2 (09:00→20:29)
[2019-09-06] MEDS ORDERED: POTASSIUM CHLORIDE 20MEQ TABLET SR PO NR (09:30)
[2019-09-06] MEDS: DEXT 5% WATER + KCL 20MEQ/L 1,000 ML IV SCH ×2 (10:46→23:24)
[2019-09-06] MEDS: AMLODIPINE 2.5MG TABLET PO SCH (13:22)
[2019-09-06] MEDS: HYDROCODONE/ACETAMINOPHEN 5/325MG TABLET PO PRN ×3 (13:23→23:32)
[2019-09-06 16:36] LABS: HEMOGLOBIN 10.1 g/dL (14.0-18.0)
[2019-09-07] VITALS (12 sets, daily range): BP systolic 121–144; BP diastolic 73–98
[2019-09-07] MEDS: IPRATROPIUM/ALBUTEROL 0.5-3(2.5)MG/3ML NEB HHN SCH ×3 (02:10→21:40)
[2019-09-07] MEDS: METOCLOPRAMIDE HCL 10MG/2ML VIAL IV SCH ×3 (05:14→18:00)
[2019-09-07] MEDS: HYDROCODONE/ACETAMINOPHEN 5/325MG TABLET PO PRN ×4 (05:15→20:52)
[2019-09-07 08:08] LABS: PHOSPHORUS 3.5 mg/dL (2.5-4.9)
[2019-09-07 08:33] LABS: HEMATOCRIT. 29.4 % (42.0-52.0); HEMOGLOBIN. 9.8 g/dL (14.0-18.0); MEAN CORPUSCULAR HEMOGLOBIN 30.3 pg (28.0-32.0); MEAN CORPUSCULAR VOLUME 90.8 fL (80.0-94.0); PLATELET 253 x1000/uL (130-400); RED BLOOD CELL COUNT 3.24 mill/uL (4.7-6.1); RED CELL DISTRIBUTION WIDTH 15.2 % (11.6-14.6)
[2019-09-07] MEDS: RISPERIDONE 0.5MG TABLET PO SCH ×2 (10:38→20:52)
[2019-09-07] MEDS: PANTOPRAZOLE SODIUM 40 MG/VIAL IV SCH ×2 (10:38→20:51)
[2019-09-07] MEDS: SUCRALFATE 1 G/10 ML UDC PO SCH ×4 (10:38→20:52)
[2019-09-07] MEDS: AMLODIPINE 2.5MG TABLET PO SCH (10:39)
[2019-09-07 14:19] LABS: PLATELET ESTIMATE NORMAL
[2019-09-07] MEDS: TAMSULOSIN HCL 0.4MG SR CAPSULE PO SCH (16:15)
[2019-09-08] VITALS (14 sets, daily range): BP systolic 131–153; BP diastolic 59–94
[2019-09-08] MEDS: METOCLOPRAMIDE HCL 10MG/2ML VIAL IV SCH ×3 (00:20→13:07)
[2019-09-08] MEDS: HYDROCODONE/ACETAMINOPHEN 5/325MG TABLET PO PRN ×4 (00:50→20:24)
[2019-09-08] MEDS: IPRATROPIUM/ALBUTEROL 0.5-3(2.5)MG/3ML NEB HHN SCH ×4 (01:13→20:56)
[2019-09-08] MEDS: SUCRALFATE 1 G/10 ML UDC PO SCH ×3 (10:07→20:27)
[2019-09-08] MEDS: PANTOPRAZOLE SODIUM 40 MG/VIAL IV SCH ×2 (10:08→20:27)
[2019-09-08] MEDS: TAMSULOSIN HCL 0.4MG SR CAPSULE PO SCH (10:08)
[2019-09-08] MEDS: RISPERIDONE 0.5MG TABLET PO SCH ×2 (10:09→20:27)
[2019-09-08 11:29] LABS: HEMOGLOBIN. 9.3 g/dL (14.0-18.0); MEAN CORPUSCULAR HEMOGLOBIN 30.3 pg (28.0-32.0); MEAN CORPUSCULAR VOLUME 90.8 fL (80.0-94.0); MEAN PLATELET VOLUME 8.5 fl (7.4-10.4); PLATELET 313 x1000/uL (130-400); RED BLOOD CELL COUNT 3.08 mill/uL (4.7-6.1); RED CELL DISTRIBUTION WIDTH 15.2 % (11.6-14.6)
[2019-09-08 13:02] LABS: PLATELET ESTIMATE NORMAL
[2019-09-08] MEDS: LORAZEPAM 2MG/ML CPJ IV PRN (20:25)
[2019-09-08] MEDS: ONDANSETRON HCL 4MG/2ML INJ IV PRN (20:25)
[2019-09-09] VITALS (10 sets, daily range): BP systolic 133–159; BP diastolic 71–98
[2019-09-09] MEDS: CAPSAICIN 0.025% CREAM 60GM TOP PRN (00:43)
[2019-09-09] MEDS: HYDROCODONE/ACETAMINOPHEN 5/325MG TABLET PO PRN ×3 (00:44→20:29)
[2019-09-09] MEDS: METOCLOPRAMIDE HCL 10MG/2ML VIAL IV SCH ×5 (00:45→23:40)
[2019-09-09] MEDS: IPRATROPIUM/ALBUTEROL 0.5-3(2.5)MG/3ML NEB HHN SCH ×4 (02:55→20:52)
[2019-09-09] MEDS: SUCRALFATE 1 G/10 ML UDC PO SCH ×4 (07:30→20:25)
[2019-09-09] MEDS: PANTOPRAZOLE SODIUM 40 MG/VIAL IV SCH ×2 (08:57→20:25)
[2019-09-09] MEDS: RISPERIDONE 0.5MG TABLET PO SCH ×2 (08:57→20:25)
[2019-09-09] MEDS: TAMSULOSIN HCL 0.4MG SR CAPSULE PO SCH (08:58)
[2019-09-09] MEDS ORDERED: DOXAZOSIN MESYLATE 2MG TABLET PO SCH (21:00)
[2019-09-10] VITALS: BP 133/67
[2019-09-10] MEDS: IPRATROPIUM/ALBUTEROL 0.5-3(2.5)MG/3ML NEB HHN SCH ×4 (01:36→21:28)
[2019-09-10 04:00] VITALS: BP 139/73
[2019-09-10] MEDS: CAPSAICIN 0.025% CREAM 60GM TOP PRN (05:47)
[2019-09-10] MEDS: SUCRALFATE 1 G/10 ML UDC PO SCH ×4 (06:41→20:51)
[2019-09-10] MEDS: METOCLOPRAMIDE HCL 10MG/2ML VIAL IV SCH ×4 (06:41→23:59)
[2019-09-10 08:00] VITALS: BP 154/81
[2019-09-10] MEDS: RISPERIDONE 0.5MG TABLET PO SCH ×2 (08:54→20:50)
[2019-09-10] MEDS: PANTOPRAZOLE SODIUM 40 MG/VIAL IV SCH ×2 (08:54→20:51)
[2019-09-10] MEDS: HYDROCODONE/ACETAMINOPHEN 5/325MG TABLET PO PRN ×2 (08:55→14:37)
[2019-09-10 11:40] VITALS: BP 132/74
[2019-09-10] MEDS ORDERED: CLON1PAT11 TD (12:26)
[2019-09-10] MEDS ORDERED: OMEP20TA2 MT (12:26)
[2019-09-10] MEDS ORDERED: DOXA4TAB2 PO (12:26)
[2019-09-10] MEDS ORDERED: SUCR1ORA15 PO (12:26)
[2019-09-10] MEDS ORDERED: HYDRALAZINE 10 MG in SODIUM CHLORIDE 0.9% 49.5 ML IV PRN (13:45)
[2019-09-10 17:27] LABS: BASOPHILS % 1.3 % (0.0-2.0); EOSINOPHILS % 1.8 % (0.0-5.0); HEMATOCRIT. 25.6 % (42.0-52.0); HEMOGLOBIN. 8.6 g/dL (14.0-18.0); LYMPHOCYTES % 10.3 % (20.0-50.0); MEAN CORPUSCULAR HEMOGLOBIN 30.3 pg (28.0-32.0); MEAN CORPUSCULAR VOLUME 89.9 fL (80.0-94.0); MONOCYTES % 7.5 % (2.0-8.0); NEUTROPHILS % 79.1 % (40.0-76.0); PLATELET 376 x1000/uL (130-400); RED BLOOD CELL COUNT 2.85 mill/uL (4.7-6.1); RED CELL DISTRIBUTION WIDTH 15.5 % (11.6-14.6)
[2019-09-10 17:32] LABS: CHLORIDE 111 mEq/L (98-107)
[2019-09-10 17:38] LABS: PHOSPHORUS 3.7 mg/dL (2.5-4.9)
[2019-09-10 20:00] VITALS: BP 136/70
[2019-09-10] MEDS: DOXAZOSIN MESYLATE 4MG TABLET PO SCH (20:48)
[2019-09-11] MEDS: IPRATROPIUM/ALBUTEROL 0.5-3(2.5)MG/3ML NEB HHN SCH ×4 (03:07→20:20)
[2019-09-11] MEDS: HYDROCODONE/ACETAMINOPHEN 5/325MG TABLET PO PRN ×2 (03:29→10:58)
[2019-09-11 04:00] VITALS: BP 128/69
[2019-09-11] MEDS: METOCLOPRAMIDE HCL 10MG/2ML VIAL IV SCH ×4 (06:17→23:57)
[2019-09-11] MEDS: SUCRALFATE 1 G/10 ML UDC PO SCH ×4 (06:34→21:19)
[2019-09-11 08:00] VITALS: BP 120/65
[2019-09-11] MEDS: PANTOPRAZOLE SODIUM 40 MG/VIAL IV SCH ×2 (08:40→21:20)
[2019-09-11] MEDS: RISPERIDONE 0.5MG TABLET PO SCH ×2 (08:42→21:19)
[2019-09-11] MEDS: CLONIDINE HCL 0.2MG/24HR PATCH TD SCH (11:01)
[2019-09-11 12:00] VITALS: BP 141/83
[2019-09-11 16:00] VITALS: BP 140/75
[2019-09-11] MEDS: HYDROCODONE/ACETAMINOPHEN 10/325MG TABLET PO PRN (18:58)
[2019-09-11 20:00] VITALS: BP 137/85
[2019-09-11 21:02] LABS: BASOPHILS % 1.8 % (0.0-2.0); EOSINOPHILS % 2.1 % (0.0-5.0); HEMATOCRIT. 28.5 % (42.0-52.0); HEMOGLOBIN. 9.4 g/dL (14.0-18.0); MEAN CORPUSCULAR HEMOGLOBIN 29.5 pg (28.0-32.0); MEAN CORPUSCULAR VOLUME 89.8 fL (80.0-94.0); MONOCYTES % 10.7 % (2.0-8.0); NEUTROPHILS % 69.4 % (40.0-76.0); PLATELET 536 x1000/uL (130-400); RED BLOOD CELL COUNT 3.17 mill/uL (4.7-6.1); RED CELL DISTRIBUTION WIDTH 14.9 % (11.6-14.6)
[2019-09-11 21:13] LABS: PHOSPHORUS 3.5 mg/dL (2.5-4.9)
[2019-09-11] MEDS: DOXAZOSIN MESYLATE 4MG TABLET PO SCH (21:19)
[2019-09-12] VITALS: BP 147/73
[2019-09-12] MEDS: IPRATROPIUM/ALBUTEROL 0.5-3(2.5)MG/3ML NEB HHN SCH ×4 (01:11→20:15)
[2019-09-12 04:00] VITALS: BP 115/74
[2019-09-12] MEDS: HYDROCODONE/ACETAMINOPHEN 10/325MG TABLET PO PRN ×3 (05:00→18:48)
[2019-09-12] MEDS: METOCLOPRAMIDE HCL 10MG/2ML VIAL IV SCH ×3 (05:00→18:48)
[2019-09-12] MEDS: SUCRALFATE 1 G/10 ML UDC PO SCH ×4 (06:28→20:47)
[2019-09-12] MEDS: RISPERIDONE 0.5MG TABLET PO SCH ×2 (09:02→20:46)
[2019-09-12] MEDS: PANTOPRAZOLE SODIUM 40 MG/VIAL IV SCH ×2 (09:02→20:47)
[2019-09-12] MEDS ORDERED: MAGNESIUM 2 G PREMIX 50 ML IV SCH (10:00)
[2019-09-12 20:00] VITALS: BP 144/71
[2019-09-12] MEDS: DOXAZOSIN MESYLATE 4MG TABLET PO SCH (21:47)
[2019-09-13] VITALS: BP 153/75
[2019-09-13] MEDS: METOCLOPRAMIDE HCL 10MG/2ML VIAL IV SCH ×2 (00:31→06:00)
[2019-09-13] MEDS: HYDROCODONE/ACETAMINOPHEN 10/325MG TABLET PO PRN ×3 (00:56→17:08)
[2019-09-13] MEDS: IPRATROPIUM/ALBUTEROL 0.5-3(2.5)MG/3ML NEB HHN SCH (02:12)
[2019-09-13] MEDS: SUCRALFATE 1 G/10 ML UDC PO SCH ×4 (06:54→21:04)
[2019-09-13] MEDS: RISPERIDONE 0.5MG TABLET PO SCH ×2 (09:00→21:05)
[2019-09-13] MEDS: PANTOPRAZOLE SODIUM 40 MG/VIAL IV SCH ×2 (09:00→21:04)
[2019-09-13 10:22] VITALS: BP 116/52
[2019-09-13 20:00] VITALS: BP 145/80
[2019-09-13] MEDS: DOXAZOSIN MESYLATE 4MG TABLET PO SCH (21:04)
[2019-09-13] MEDS: MORPHINE SULFATE 2 MG/ML CPJ (NOT FOR IM USE) IV PRN (21:05)
[2019-09-14] VITALS: BP 120/72
[2019-09-14] MEDS: MORPHINE SULFATE 2 MG/ML CPJ (NOT FOR IM USE) IV PRN ×5 (01:07→21:20)
[2019-09-14 04:00] VITALS: BP 123/66
[2019-09-14] MEDS: SUCRALFATE 1 G/10 ML UDC PO SCH ×4 (06:20→21:18)
[2019-09-14 08:00] VITALS: BP 108/61
[2019-09-14] MEDS: PANTOPRAZOLE SODIUM 40 MG/VIAL IV SCH ×2 (08:33→21:22)
[2019-09-14] MEDS: RISPERIDONE 0.5MG TABLET PO SCH ×2 (08:33→21:18)
[2019-09-14 12:00] VITALS: BP 114/65
[2019-09-14 20:00] VITALS: BP 127/72
[2019-09-14] MEDS: DOXAZOSIN MESYLATE 4MG TABLET PO SCH (21:00)
[2019-09-15] VITALS: BP 131/75
[2019-09-15] MEDS: MORPHINE SULFATE 2 MG/ML CPJ (NOT FOR IM USE) IV PRN ×4 (02:02→20:30)
[2019-09-15 04:00] VITALS: BP 123/74
[2019-09-15] MEDS: CAPSAICIN 0.025% CREAM 60GM TOP PRN (04:47)
[2019-09-15] MEDS: SUCRALFATE 1 G/10 ML UDC PO SCH ×4 (06:28→20:28)
[2019-09-15 08:00] VITALS: BP 126/71
[2019-09-15] MEDS: RISPERIDONE 0.5MG TABLET PO SCH ×2 (09:04→20:28)
[2019-09-15] MEDS: PANTOPRAZOLE SODIUM 40 MG/VIAL IV SCH ×2 (09:04→20:29)
[2019-09-15 12:00] VITALS: BP 126/70
[2019-09-15 20:00] VITALS: BP 130/68
[2019-09-15] MEDS: DOXAZOSIN MESYLATE 4MG TABLET PO SCH (20:28)
[2019-09-16] VITALS: BP 139/76
[2019-09-16] MEDS: MORPHINE SULFATE 2 MG/ML CPJ (NOT FOR IM USE) IV PRN ×4 (00:56→23:11)
[2019-09-16 04:00] VITALS: BP 136/65
[2019-09-16] MEDS: SUCRALFATE 1 G/10 ML UDC PO SCH ×4 (06:32→21:00)
[2019-09-16] MEDS: PANTOPRAZOLE SODIUM 40 MG/VIAL IV SCH ×2 (09:42→21:00)
[2019-09-16] MEDS: RISPERIDONE 0.5MG TABLET PO SCH ×2 (09:42→21:00)
[2019-09-16 16:00] VITALS: BP 141/82
[2019-09-16 18:14] LABS: BASOPHILS % 1.3 % (0.0-2.0); EOSINOPHILS % 1.7 % (0.0-5.0); HEMATOCRIT. 27.3 % (42.0-52.0); HEMOGLOBIN. 9.2 g/dL (14.0-18.0); LYMPHOCYTES % 14.1 % (20.0-50.0); MEAN CORPUSCULAR HEMOGLOBIN 29.8 pg (28.0-32.0); MEAN CORPUSCULAR VOLUME 88.2 fL (80.0-94.0); MEAN PLATELET VOLUME 6.8 fl (7.4-10.4); MONOCYTES % 11.4 % (2.0-8.0); NEUTROPHILS % 71.5 % (40.0-76.0); PLATELET 496 x1000/uL (130-400); RED CELL DISTRIBUTION WIDTH 14.8 % (11.6-14.6)
[2019-09-16 18:23] LABS: CHLORIDE 111 mEq/L (98-107)
[2019-09-16 20:00] VITALS: BP 137/75
[2019-09-16] MEDS: DOXAZOSIN MESYLATE 4MG TABLET PO SCH (21:00)
[2019-09-16] MEDS ORDERED: MAGNESIUM 2 G PREMIX 50 ML IV NR (21:00)
[2019-09-17] VITALS: BP 143/90
[2019-09-17] MEDS: MORPHINE SULFATE 2 MG/ML CPJ (NOT FOR IM USE) IV PRN ×4 (03:14→22:16)
[2019-09-17 04:00] VITALS: BP 123/80
[2019-09-17] MEDS: SUCRALFATE 1 G/10 ML UDC PO SCH ×4 (06:30→22:13)
[2019-09-17 08:00] VITALS: BP 120/78
[2019-09-17] MEDS: PANTOPRAZOLE SODIUM 40 MG/VIAL IV SCH ×3 (08:56→22:13)
[2019-09-17] MEDS: RISPERIDONE 0.5MG TABLET PO SCH ×3 (09:00→22:14)
[2019-09-17] MEDS: CAPSAICIN 0.025% CREAM 60GM TOP PRN (10:15)
[2019-09-17 12:00] VITALS: BP 108/68
[2019-09-17] MEDS: HYDROCODONE/ACETAMINOPHEN 5/325MG TABLET PO PRN (13:58)
[2019-09-17 16:00] VITALS: BP 126/69
[2019-09-17] MEDS: DOXAZOSIN MESYLATE 4MG TABLET PO SCH ×2 (22:13→22:14)
[2019-09-18] VITALS: BP 129/78
[2019-09-18] MEDS: MORPHINE SULFATE 2 MG/ML CPJ (NOT FOR IM USE) IV PRN ×3 (02:11→14:57)
[2019-09-18 04:00] VITALS: BP 142/72
[2019-09-18] MEDS: HYDROCODONE/ACETAMINOPHEN 5/325MG TABLET PO PRN ×2 (05:02→12:00)
[2019-09-18] MEDS: SUCRALFATE 1 G/10 ML UDC PO SCH ×2 (05:02→12:20)
[2019-09-18 05:19] LABS: CHLORIDE 110 mEq/L (98-107)
[2019-09-18 05:25] LABS: PHOSPHORUS 2.8 mg/dL (2.5-4.9)
[2019-09-18 05:53] LABS: BASOPHILS % 0.3 % (0.0-2.0); EOSINOPHILS % 2.2 % (0.0-5.0); HEMATOCRIT. 25.1 % (42.0-52.0); HEMOGLOBIN. 8.6 g/dL (14.0-18.0); LYMPHOCYTES % 15.4 % (20.0-50.0); MEAN CORPUSCULAR HEMOGLOBIN 29.9 pg (28.0-32.0); MEAN CORPUSCULAR VOLUME 87.5 fL (80.0-94.0); MEAN PLATELET VOLUME 6.9 fl (7.4-10.4); MONOCYTES % 12.4 % (2.0-8.0); NEUTROPHILS % 69.7 % (40.0-76.0); PLATELET 430 x1000/uL (130-400); RED BLOOD CELL COUNT 2.87 mill/uL (4.7-6.1); RED CELL DISTRIBUTION WIDTH 14.9 % (11.6-14.6)
[2019-09-18] MEDS: CLONIDINE HCL 0.2MG/24HR PATCH TD SCH (09:00)
[2019-09-18] MEDS: RISPERIDONE 0.5MG TABLET PO SCH (09:19)
[2019-09-18] MEDS: PANTOPRAZOLE SODIUM 40 MG/VIAL IV SCH (09:19)
[2019-09-18 12:00] VITALS: BP 115/60
[2019-09-18] MEDS ORDERED: POTASSIUM CHLORIDE 20MEQ TABLET SR PO NR (12:15)
[2019-09-18 13:31] VITALS: BP 115/60
[2019-09-18 14:57] VITALS: BP 115/60
== END 2019-09-18 18:45 | disposition home or self-care (01) | DRG 720 ==
LOC: ER 13:05 → EDBEDREQSVC 15:02 → EDBEDREQ 15:02 → EDBEDREQTM 15:02 → MICUSO 22:58 → CVICU 08-30 09:15 → 5EST 09-04 13:19 → 6EST 09-10 13:34
PROVIDERS: ADMIT Internal Medicine; ATTEND Internal Medicine
PROC: 5A1955Z Respiratory Ventilation, Greater than 96 Consecutive Hours (ICD-10-PCS; 2019-08-29)
PROC: 30233K1 Transfusion of Nonautologous Frozen Plasma into Peripheral Vein, Percutaneous Approach (ICD-10-PCS; 2019-08-29)
PROC: 0W3P8ZZ Control Bleeding in Gastrointestinal Tract, Via Natural or Artificial Opening Endoscopic (ICD-10-PCS; 2019-08-30)
PROC: 02HV33Z Insertion of Infusion Device into Superior Vena Cava, Percutaneous Approach (ICD-10-PCS; 2019-08-30)
PROC: B548ZZA Ultrasonography of Superior Vena Cava, Guidance (ICD-10-PCS; 2019-08-30)
PROC: 30233N1 Transfusion of Nonautologous Red Blood Cells into Peripheral Vein, Percutaneous Approach (ICD-10-PCS; 2019-08-30)
PROC: 0DQ78ZZ Repair Stomach, Pylorus, Via Natural or Artificial Opening Endoscopic (ICD-10-PCS; principal; 2019-08-31)
PROC: 0D968ZZ Drainage of Stomach, Via Natural or Artificial Opening Endoscopic (ICD-10-PCS; 2019-08-31)
PROC: 0DHA8UZ Insertion of Feeding Device into Jejunum, Via Natural or Artificial Opening Endoscopic (ICD-10-PCS; 2019-08-31)
PROC: 30233R1 Transfusion of Nonautologous Platelets into Peripheral Vein, Percutaneous Approach (ICD-10-PCS; 2019-08-31)
PROC: 30233M1 Transfusion of Nonautologous Plasma Cryoprecipitate into Peripheral Vein, Percutaneous Approach (ICD-10-PCS; 2019-08-31)
DX: A41.9 Sepsis, unspecified organism (principal); E43 Unspecified severe protein-calorie malnutrition; E87.8 Other disorders of electrolyte and fluid balance, not elsewhere classified; E87.1 Hypo-osmolality and hyponatremia; I10 Essential (primary) hypertension; J96.00 Acute respiratory failure, unspecified whether with hypoxia or hypercapnia; R57.8 Other shock; G93.40 Encephalopathy, unspecified; K85.90 Acute pancreatitis without necrosis or infection, unspecified; R65.21 Severe sepsis with septic shock; K72.00 Acute and subacute hepatic failure without coma; N17.0 Acute kidney failure with tubular necrosis; F16.10 Hallucinogen abuse, uncomplicated; F15.10 Other stimulant abuse, uncomplicated; F11.10 Opioid abuse, uncomplicated; E87.2 Acidosis; D50.9 Iron deficiency anemia, unspecified; D62 Acute posthemorrhagic anemia; E87.0 Hyperosmolality and hypernatremia; E83.51 Hypocalcemia; E83.42 Hypomagnesemia; D65 Disseminated intravascular coagulation [defibrination syndrome]; S51.811A Laceration without foreign body of right forearm, initial encounter; X58.XXXA Exposure to other specified factors, initial encounter; R57.1 Hypovolemic shock; J69.0 Pneumonitis due to inhalation of food and vomit; K26.0 Acute duodenal ulcer with hemorrhage; D72.810 Lymphocytopenia; K29.81 Duodenitis with bleeding; K29.51 Unspecified chronic gastritis with bleeding; Z79.899 Other long term (current) drug therapy; Z68.25 Body mass index [BMI] 25.0-25.9, adult; Z59.0 Homelessness; Y93.89 Activity, other specified; Y92.89 Other specified places as the place of occurrence of the external cause; Y99.8 Other external cause status; Z78.1 Physical restraint status; Z82.49 Family history of ischemic heart disease and other diseases of the circulatory system; Z93.4 Other artificial openings of gastrointestinal tract status
CPT/HCPCS: 36415; 36600; 71045; 74176; 76770; 76937; 80048; 80053; 80076; 80305; 81003; 82040; 82043; 82140; 82330; 82375; 82550; 82570; 82805; 82941; 82962; 83605; 83735; 83880; 83935; 84100; 84134; 84300; 84443; 85014; 85018; 85025; 85379; 85384; 86705; 86709; 86803; 86850; 86900; 86920; 86927; 87070; 87106; 87340; 87389; 92610; 93005; 93970; 94002; 94003; 94640; 97110; 97162; 97530; 97535; 99291; C1725; C9113; J0360; J0610; J0692; J1630; J2060; J2250; J2270; J2405; J2543; J2765; J3010; J3430; J3475; J3480; J3490; J7030; J7042; J7050; J7060; J7070; P9012; P9016; P9017; P9021; P9034; Q9968

== ENCOUNTER 2019-09-30 07:55 | Inpatient (IN) | payer MEDICAID, OTHER ==
[~2019-09-30] VITALS: Ht 175.3 cm; Wt 64.9 kg
[2019-09-30 09:01] LABS: BASOPHILS % 0.8 % (0.0-2.0); EOSINOPHILS % 0.9 % (0.0-5.0); LYMPHOCYTES % 20.4 % (20.0-50.0); MEAN CORPUSCULAR HEMOGLOBIN 29.2 pg (28.0-32.0); MEAN CORPUSCULAR VOLUME 87.6 fL (80.0-94.0); MEAN PLATELET VOLUME 6.2 fl (7.4-10.4); MONOCYTES % 9.4 % (2.0-8.0); NEUTROPHILS % 68.5 % (40.0-76.0); PLATELET 526 x1000/uL (130-400); RED BLOOD CELL COUNT 1.97 mill/uL (4.7-6.1); RED CELL DISTRIBUTION WIDTH 15.4 % (11.6-14.6)
[2019-09-30 09:03] LABS: HEMATOCRIT. 17.3 % (42.0-52.0); HEMOGLOBIN. 5.8 g/dL (14.0-18.0)
[2019-09-30 09:07] LABS: CHLORIDE 108 mEq/L (98-107)
[2019-09-30 09:10] LABS: INR 1.1; PROTHROMBIN TIME 11.5 sec (9.6-11.0)
[2019-09-30] MEDS ORDERED: AZITHROMYCIN 500 MG TABLET PO SCH (11:53)
[2019-09-30] MEDS ORDERED: CEFTRIAXONE 1,000 MG in DEXTROSE 5% WATER 50 ML IV SCH (12:00)
[2019-09-30] MEDS ORDERED: ONDANSETRON HCL 4MG/2ML INJ IV PRN (12:00)
[2019-09-30] MEDS: HYDROCODONE/ACETAMINOPHEN 10/325MG TABLET PO PRN (12:29)
[2019-09-30] MEDS: SUCRALFATE 1G TABLET PO SCH ×3 (13:02→21:00)
[2019-09-30 15:03] LABS: MEAN CORPUSCULAR HEMOGLOBIN 29.7 pg (28.0-32.0); MEAN CORPUSCULAR VOLUME 85.9 fL (80.0-94.0); PLATELET 495 x1000/uL (130-400); RED BLOOD CELL COUNT 2.28 mill/uL (4.7-6.1); RED CELL DISTRIBUTION WIDTH 14.9 % (11.6-14.6)
[2019-09-30 15:03] LABS: CLARITY URINE CLEAR (CLEAR); COLOR URINE YELLOW (YELLOW); KETONES URINE NEGATIVE (NEGATIVE); LEUKOCYTE ESTERASE URINE NEGATIVE (NEGATIVE); NITRITE URINE NEGATIVE (NEGATIVE); OCCULT BLOOD URINE NEGATIVE (NEGATIVE); PROTEIN URINE NEGATIVE (NEGATIVE); SPECIFIC GRAVITY URINE 1.022 (1.005-1.030)
[2019-09-30 15:08] LABS: HEMATOCRIT 19.6 % (42.0-52.0); HEMOGLOBIN 6.8 g/dL (14.0-18.0)
[2019-09-30] MEDS ORDERED: IOHEXOL-300 100 ML BOTTLE ONE (15:20)
[2019-09-30] MEDS: SUCRALFATE 1 G/10 ML UDC PO SCH (20:34)
[2019-09-30 20:40] LABS: TOTAL IRON BINDING CAPACITY 207 ug/dL (250-450)
[2019-09-30 21:05] LABS: FERRITIN 175 ng/mL (22-322)
[2019-09-30] MEDS: METOCLOPRAMIDE HCL 10MG/2ML VIAL IV SCH (21:05)
[2019-09-30 21:20] LABS: VITAMIN B12 SERUM 525 pg/mL (211-911)
[2019-10-01] VITALS (13 sets, daily range): BP systolic 112–145; BP diastolic 55–109
[2019-10-01] MEDS: LORAZEPAM 2MG/ML CPJ IV PRN (03:22)
[2019-10-01] MEDS: HYDROCODONE/ACETAMINOPHEN 10/325MG TABLET PO PRN ×3 (03:22→21:57)
[2019-10-01] MEDS: METOCLOPRAMIDE HCL 10MG/2ML VIAL IV SCH ×3 (05:51→21:57)
[2019-10-01] MEDS: OMEPRAZOLE 20MG CAPSULE EXTENDED RELEASE PO SCH (08:30)
[2019-10-01] MEDS: SUCRALFATE 1 G/10 ML UDC PO SCH ×4 (08:30→21:57)
[2019-10-01 10:43] LABS: BASOPHILS % 0.8 % (0.0-2.0); EOSINOPHILS % 0.9 % (0.0-5.0); HEMATOCRIT. 24.4 % (42.0-52.0); HEMOGLOBIN. 8.3 g/dL (14.0-18.0); LYMPHOCYTES % 18.9 % (20.0-50.0); MEAN CORPUSCULAR HEMOGLOBIN 29.7 pg (28.0-32.0); MEAN CORPUSCULAR VOLUME 87.7 fL (80.0-94.0); MEAN PLATELET VOLUME 6.3 fl (7.4-10.4); NEUTROPHILS % 71.4 % (40.0-76.0); PLATELET 482 x1000/uL (130-400); RED BLOOD CELL COUNT 2.78 mill/uL (4.7-6.1); RED CELL DISTRIBUTION WIDTH 14.9 % (11.6-14.6)
[2019-10-01 11:17] LABS: CHLORIDE 107 mEq/L (98-107)
[2019-10-01] MEDS ORDERED: SUCR1ORA15 PO (12:06)
[2019-10-01] MEDS ORDERED: OMEP20CA14 PO (12:06)
[2019-10-01] MEDS ORDERED: DOCU250C14 MT (12:06)
[2019-10-01] MEDS ORDERED: FERR325T6 MT (12:06)
[2019-10-01] MEDS ORDERED: CEFTRIAXONE 1 G PREMIX 50 ML IV SCH (12:15)
[2019-10-01] MEDS ORDERED: MAGNESIUM HYDROXIDE 400MG/5ML 30ML UDC PO PRN (13:15)
[2019-10-01] MEDS: CEFTRIAXONE 1,000 MG in DEXTROSE 5% WATER 50 ML IV SCH (13:58)
[2019-10-01] MEDS: MORPHINE SULFATE 2 MG/ML CPJ (NOT FOR IM USE) IV PRN (22:32)
[2019-10-02] MEDS: MORPHINE SULFATE 2 MG/ML CPJ (NOT FOR IM USE) IV PRN ×2 (02:04→05:58)
[2019-10-02] MEDS: LORAZEPAM 2MG/ML CPJ IV PRN (02:40)
[2019-10-02] MEDS: HYDROCODONE/ACETAMINOPHEN 10/325MG TABLET PO PRN (04:15)
[2019-10-02] MEDS: METOCLOPRAMIDE HCL 10MG/2ML VIAL IV SCH ×2 (05:58→14:00)
[2019-10-02 06:01] VITALS: BP 138/78
[2019-10-02] MEDS: SUCRALFATE 1 G/10 ML UDC PO SCH ×2 (07:30→12:30)
[2019-10-02] MEDS: OMEPRAZOLE 20MG CAPSULE EXTENDED RELEASE PO SCH (07:30)
[2019-10-02 09:10] LABS: FOLATE HEMATOCRIT 21.2 % (37.5-51.0)
[2019-10-02] MEDS: CEFTRIAXONE 1,000 MG in DEXTROSE 5% WATER 50 ML IV SCH (13:00)
[2019-10-02 14:08] LABS: FOLATE RBC 1486 ng/mL (>498)
[2019-10-02] MEDS ORDERED: QUETIAPINE FUMARATE 50MG TABLET PO SCH (21:00)
== END 2019-10-02 15:00 | disposition left against medical advice (07) | DRG 253 ==
LOC: ER 07:55 → EDBEDREQ 09:25 → EDBEDREQTM 09:25 → EDBEDREQ 10:41 → EDBEDREQTM 10:41 → EDBEDREQSVC 10:41 → 5EST 11:37 → EDBEDREQSVC 11:41 → EDBEDREQTM 11:41 → ENRESERV 10-02 23:24
PROVIDERS: ADMIT Internal Medicine; ATTEND Internal Medicine
PROC: 30233N1 Transfusion of Nonautologous Red Blood Cells into Peripheral Vein, Percutaneous Approach (ICD-10-PCS; principal; 2019-09-30)
DX: K92.2 Gastrointestinal hemorrhage, unspecified (principal); E43 Unspecified severe protein-calorie malnutrition; E87.8 Other disorders of electrolyte and fluid balance, not elsewhere classified; J98.11 Atelectasis; D64.9 Anemia, unspecified; I10 Essential (primary) hypertension; K29.70 Gastritis, unspecified, without bleeding; F41.9 Anxiety disorder, unspecified; Z68.21 Body mass index [BMI] 21.0-21.9, adult
CPT/HCPCS: 36415; 71045; 74177; 80048; 80053; 81003; 82270; 82607; 82728; 82747; 83540; 83550; 83880; 84484; 85014; 85025; 85027; 86850; 86900; 86920; 93005; 96365; 97110; 97162; 99291; J0696; J2060; J2270; J2765; J7060; P9016; Q9967

== ENCOUNTER 2019-10-06 04:03 | Inpatient (IN) | payer MEDICAID, OTHER ==
[2019-10-06] VITALS (11 sets, daily range): BP systolic 122–137; BP diastolic 69–89
[~2019-10-06] VITALS: Ht 165.1 cm; Wt 61.9 kg
[~2019-10-06 04:03] MED LIST changes: -AMLO5TAB88 PO; -CEPH750C7 PO; +DOCU250C14 MT; +FERR325T6 MT; -HYDR25TA PO; +OMEP20CA14 PO; -PANT40SU MT; +SUCR1ORA15 PO; -SUCR1TAB30 MT
[2019-10-06] MEDS ORDERED: ONDANSETRON HCL 4MG/2ML INJ IV STA (04:20)
[2019-10-06] MEDS ORDERED: SODIUM CHLORIDE 0.9% 1,000 ML IV ONE (04:20)
[2019-10-06 05:08] LABS: BASOPHILS % 0.8 % (0.0-2.0); EOSINOPHILS % 1.7 % (0.0-5.0); LYMPHOCYTES % 12.3 % (20.0-50.0); MEAN CORPUSCULAR HEMOGLOBIN 28.7 pg (28.0-32.0); MEAN CORPUSCULAR VOLUME 89.9 fL (80.0-94.0); MEAN PLATELET VOLUME 6.3 fl (7.4-10.4); MONOCYTES % 4.6 % (2.0-8.0); NEUTROPHILS % 80.6 % (40.0-76.0); PLATELET 485 x1000/uL (130-400); RED BLOOD CELL COUNT 2.26 mill/uL (4.7-6.1); RED CELL DISTRIBUTION WIDTH 15.8 % (11.6-14.6)
[2019-10-06 05:11] LABS: CHLORIDE 112 mEq/L (98-107)
[2019-10-06 05:13] LABS: INR 1.1; PROTHROMBIN TIME 11.2 sec (9.6-11.0)
[2019-10-06 05:15] LABS: ETHANOL BLOOD < 10 mg/dL
[2019-10-06 05:17] LABS: HEMATOCRIT. 20.3 % (42.0-52.0); HEMOGLOBIN. 6.5 g/dL (14.0-18.0)
[2019-10-06] MEDS ORDERED: PANTOPRAZOLE SODIUM 40 MG/VIAL IV ONE (05:30)
[2019-10-06] MEDS ORDERED: IOHEXOL-300 100 ML BOTTLE ONE (07:32)
[2019-10-06] MEDS ORDERED: NA PHOS,M-B/NA PHOS,DI-BA ENEMA 118ML PR PRN (10:45)
[2019-10-06] MEDS ORDERED: ONDANSETRON HCL 4MG/2ML INJ IV PRN (10:45)
[2019-10-06] MEDS ORDERED: HYDROCODONE/APAP 7.5/325MG 1 TAB TABLET PO PRN (10:45)
[2019-10-06] MEDS ORDERED: DOCUSATE SODIUM 100MG CAPSULE PO PRN (10:45)
[2019-10-06] MEDS ORDERED: ACETAMINOPHEN 325MG TABLET PO PRN (10:45)
[2019-10-06] MEDS ORDERED: IPRATROPIUM/ALBUTEROL 0.5-3(2.5)MG/3ML NEB NEB PRN (10:45)
[2019-10-06] MEDS ORDERED: MAGNESIUM/ALUMINUM HYDROXIDE/SIMETHICONE 30ML UDC PO PRN (10:45)
[2019-10-06] MEDS ORDERED: GUAIFENESIN 200MG/10ML SUGAR FREE UDC PO PRN (10:45)
[2019-10-06] MEDS ORDERED: CLONIDINE 0.1MG TABLET PO PRN (10:45)
[2019-10-06] MEDS: SODIUM CHLORIDE 0.45% 1,000 ML IV SCH ×2 (11:12→20:44)
[2019-10-06 16:16] LABS: CHLORIDE 111 mEq/L (98-107)
[2019-10-06] MEDS ORDERED: PANTOPRAZOLE SODIUM 40 MG/VIAL IV SCH (17:00)
[2019-10-06] MEDS: SUCRALFATE 1 G/10 ML UDC PO SCH ×2 (17:26→22:05)
[2019-10-06] MEDS: MORPHINE SULFATE 2 MG/ML CPJ (NOT FOR IM USE) IV PRN ×2 (17:28→22:19)
[2019-10-06] MEDS: PANTOPRAZOLE SODIUM 40 MG/VIAL IV SCH (22:05)
[2019-10-06 23:23] LABS: CLARITY URINE CLEAR (CLEAR); COLOR URINE YELLOW (YELLOW); KETONES URINE NEGATIVE (NEGATIVE); LEUKOCYTE ESTERASE URINE NEGATIVE (NEGATIVE); NITRITE URINE NEGATIVE (NEGATIVE); OCCULT BLOOD URINE NEGATIVE (NEGATIVE); PH URINE 6.5 (4.5-8.0); PROTEIN URINE NEGATIVE (NEGATIVE); SPECIFIC GRAVITY URINE 1.013 (1.005-1.030); UROBILINOGEN URINE 0.2 E.U./dL (0.2-1.0)
[2019-10-06 23:37] LABS: *BENZODIAZEPINES SCREEN URINE NEGATIVE (NEGATIVE)
[2019-10-06 23:38] LABS: *AMPHETAMINES SCREEN URINE NEGATIVE (NEGATIVE); *BARBITURATES SCREEN URINE NEGATIVE (NEGATIVE); *COCAINE SCREEN URINE NEGATIVE (NEGATIVE); CANNABINOID URINE SCREEN NEGATIVE (NEGATIVE); METHADONE URINE SCREEN NEGATIVE (NEGATIVE); OPIATES URINE SCREEN PRESUMTIVE POSITIVE (NEGATIVE); PHENCYCLIDINE URINE SCREEN NEGATIVE (NEGATIVE)
[2019-10-07] VITALS (10 sets, daily range): BP systolic 110–135; BP diastolic 58–77
[2019-10-07 00:59] LABS: HEMOGLOBIN 6.7 g/dL (14.0-18.0)
[2019-10-07 01:00] LABS: HEMATOCRIT 19.6 % (42.0-52.0)
[2019-10-07] MEDS: MORPHINE SULFATE 2 MG/ML CPJ (NOT FOR IM USE) IV PRN ×4 (02:23→21:52)
[2019-10-07] MEDS: SUCRALFATE 1 G/10 ML UDC PO SCH ×4 (06:02→21:48)
[2019-10-07] MEDS: SODIUM CHLORIDE 0.45% 1,000 ML IV SCH (06:45)
[2019-10-07] MEDS: PANTOPRAZOLE SODIUM 40 MG/VIAL IV SCH ×2 (08:52→21:48)
[2019-10-07 16:48] LABS: BASOPHILS % 0.7 % (0.0-2.0); EOSINOPHILS % 3.5 % (0.0-5.0); HEMATOCRIT. 26.1 % (42.0-52.0); HEMOGLOBIN. 8.8 g/dL (14.0-18.0); LYMPHOCYTES % 24.1 % (20.0-50.0); MEAN CORPUSCULAR HEMOGLOBIN 29.5 pg (28.0-32.0); MEAN CORPUSCULAR VOLUME 87.2 fL (80.0-94.0); MEAN PLATELET VOLUME 6.4 fl (7.4-10.4); MONOCYTES % 6.4 % (2.0-8.0); NEUTROPHILS % 65.3 % (40.0-76.0); PLATELET 406 x1000/uL (130-400); RED CELL DISTRIBUTION WIDTH 15.1 % (11.6-14.6)
[2019-10-07 16:59] LABS: CHLORIDE 107 mEq/L (98-107)
[2019-10-07 17:08] LABS: LDL CHOLESTEROL 91 mg/dL (5-100)
[2019-10-07 17:09] LABS: HDL CHOLESTEROL 54 mg/dL (40-59); T4 FREE 0.93 ng/dL (0.76-1.46)
[2019-10-08] VITALS: BP 116/70
[2019-10-08] MEDS: LORAZEPAM 2MG/ML CPJ IV PRN ×2 (00:31→21:34)
[2019-10-08] MEDS: MORPHINE SULFATE 2 MG/ML CPJ (NOT FOR IM USE) IV PRN ×3 (02:50→17:43)
[2019-10-08 04:00] VITALS: BP 111/73
[2019-10-08] MEDS: SUCRALFATE 1 G/10 ML UDC PO SCH ×4 (06:23→21:34)
[2019-10-08 08:00] VITALS: BP 117/78
[2019-10-08] MEDS: PANTOPRAZOLE SODIUM 40 MG/VIAL IV SCH ×3 (08:07→21:35)
[2019-10-08 10:30] LABS: BASOPHILS % 1.1 % (0.0-2.0); EOSINOPHILS % 3.3 % (0.0-5.0); HEMATOCRIT. 24.7 % (42.0-52.0); HEMOGLOBIN. 8.4 g/dL (14.0-18.0); LYMPHOCYTES % 28.6 % (20.0-50.0); MEAN CORPUSCULAR HEMOGLOBIN 29.8 pg (28.0-32.0); MEAN CORPUSCULAR VOLUME 87.5 fL (80.0-94.0); MEAN PLATELET VOLUME 6.2 fl (7.4-10.4); MONOCYTES % 7.4 % (2.0-8.0); NEUTROPHILS % 59.6 % (40.0-76.0); PLATELET 376 x1000/uL (130-400); RED BLOOD CELL COUNT 2.83 mill/uL (4.7-6.1); RED CELL DISTRIBUTION WIDTH 15.2 % (11.6-14.6)
[2019-10-08 10:34] LABS: CHLORIDE 106 mEq/L (98-107)
[2019-10-08 12:00] VITALS: BP 134/77
[2019-10-08] MEDS ORDERED: LIDOCAINE HCL/PF 1% 10 MG/ML 5ML VIAL ONE (13:14)
[2019-10-08] MEDS ORDERED: PROPOFOL 200MG/20ML VIAL IV ONE (13:14)
[2019-10-08] MEDS ORDERED: METOCLOPRAMIDE HCL 10MG/2ML VIAL IV PRN (13:45)
[2019-10-08] MEDS ORDERED: ONDANSETRON HCL 4MG/2ML INJ IV PRN (13:45)
[2019-10-08 16:00] VITALS: BP 110/55
[2019-10-08 20:00] VITALS: BP 106/57
[2019-10-08] MEDS: SODIUM CHLORIDE 0.45% 1,000 ML IV SCH (21:35)
[2019-10-09] MEDS: SUCRALFATE 1 G/10 ML UDC PO SCH ×4 (06:09→20:05)
[2019-10-09 08:00] VITALS: BP 95/50
[2019-10-09] MEDS: PANTOPRAZOLE SODIUM 40 MG/VIAL IV SCH ×2 (08:59→20:05)
[2019-10-09 11:01] VITALS: BP 131/83
[2019-10-09] MEDS: MORPHINE SULFATE 2 MG/ML CPJ (NOT FOR IM USE) IV PRN ×2 (11:18→18:27)
[2019-10-09 16:00] VITALS: BP 137/77
[2019-10-09] MEDS: SODIUM CHLORIDE 0.45% 1,000 ML IV SCH (19:15)
[2019-10-09 20:00] VITALS: BP 134/69
[2019-10-09] MEDS: LORAZEPAM 2MG/ML CPJ IV PRN (20:05)
[2019-10-10] VITALS: BP 118/74
[2019-10-10 04:00] VITALS: BP 130/71
[2019-10-10] MEDS: SUCRALFATE 1 G/10 ML UDC PO SCH ×4 (05:51→20:43)
[2019-10-10 08:00] VITALS: BP 138/85
[2019-10-10] MEDS: MORPHINE SULFATE 2 MG/ML CPJ (NOT FOR IM USE) IV PRN ×3 (08:16→19:51)
[2019-10-10] MEDS: PANTOPRAZOLE SODIUM 40 MG/VIAL IV SCH ×2 (08:16→20:43)
[2019-10-10 12:00] VITALS: BP 126/75
[2019-10-10] MEDS: SODIUM CHLORIDE 0.45% 1,000 ML IV SCH (14:45)
[2019-10-10 16:00] VITALS: BP 136/78
[2019-10-10 20:00] VITALS: BP 137/84
[2019-10-10] MEDS: LORAZEPAM 2MG/ML CPJ IV PRN (22:14)
[2019-10-11] VITALS (40 sets, daily range): BP systolic 72–137; BP diastolic 40–88
[2019-10-11] MEDS ORDERED: SODIUM CHLORIDE 0.9% 1,000 ML IV ONE (06:15)
[2019-10-11] MEDS: SUCRALFATE 1 G/10 ML UDC PO SCH ×5 (06:45→17:50)
[2019-10-11 08:03] LABS: HEMATOCRIT 19.9 % (42.0-52.0); HEMOGLOBIN 6.5 g/dL (14.0-18.0)
[2019-10-11 08:32] LABS: CHLORIDE 119 mEq/L (98-107)
[2019-10-11 09:23] LABS: MEAN CORPUSCULAR HEMOGLOBIN 29.3 pg (28.0-32.0); MEAN CORPUSCULAR VOLUME 89.7 fL (80.0-94.0); PLATELET 378 x1000/uL (130-400); RED BLOOD CELL COUNT 2.22 mill/uL (4.7-6.1); RED CELL DISTRIBUTION WIDTH 16.1 % (11.6-14.6)
[2019-10-11 09:24] LABS: HEMATOCRIT 19.9 % (42.0-52.0); HEMOGLOBIN 6.5 g/dL (14.0-18.0)
[2019-10-11] MEDS: PANTOPRAZOLE SODIUM 40 MG/VIAL IV SCH ×2 (09:36→21:18)
[2019-10-11] MEDS: SODIUM CHLORIDE 0.45% 1,000 ML IV SCH (09:38)
[2019-10-11] MEDS: MORPHINE SULFATE 2 MG/ML CPJ (NOT FOR IM USE) IV PRN ×2 (16:07→22:06)
[2019-10-11 17:23] LABS: HEMOGLOBIN 8.5 g/dL (14.0-18.0)
[2019-10-12] VITALS (16 sets, daily range): BP systolic 118–148; BP diastolic 64–90
[2019-10-12] MEDS: MORPHINE SULFATE 2 MG/ML CPJ (NOT FOR IM USE) IV PRN ×4 (02:45→22:15)
[2019-10-12 06:14] LABS: CHLORIDE 111 mEq/L (98-107)
[2019-10-12 06:34] LABS: BASOPHILS % 0.6 % (0.0-2.0); EOSINOPHILS % 0.9 % (0.0-5.0); LYMPHOCYTES % 29.6 % (20.0-50.0); MEAN CORPUSCULAR HEMOGLOBIN 31.2 pg (28.0-32.0); MEAN CORPUSCULAR VOLUME 90.3 fL (80.0-94.0); MEAN PLATELET VOLUME 6.5 fl (7.4-10.4); MONOCYTES % 8.8 % (2.0-8.0); NEUTROPHILS % 60.1 % (40.0-76.0); PLATELET 288 x1000/uL (130-400); RED BLOOD CELL COUNT 2.55 mill/uL (4.7-6.1); RED CELL DISTRIBUTION WIDTH 16.1 % (11.6-14.6)
[2019-10-12] MEDS: SODIUM CHLORIDE 0.45% 1,000 ML IV SCH (06:37)
[2019-10-12] MEDS: PANTOPRAZOLE SODIUM 40 MG/VIAL IV SCH ×2 (07:54→20:39)
[2019-10-12] MEDS: SUCRALFATE 1 G/10 ML UDC PO SCH ×4 (07:54→20:39)
[2019-10-12] MEDS: DIPHENHYDRAMINE 50MG/ML VIAL IV PRN ×2 (09:49→16:39)
[2019-10-13] VITALS (11 sets, daily range): BP systolic 120–153; BP diastolic 66–88
[2019-10-13] MEDS: DIPHENHYDRAMINE 50MG/ML VIAL IV PRN (00:45)
[2019-10-13] MEDS: SODIUM CHLORIDE 0.45% 1,000 ML IV SCH ×2 (00:53→20:05)
[2019-10-13] MEDS: MORPHINE SULFATE 2 MG/ML CPJ (NOT FOR IM USE) IV PRN ×4 (03:27→20:06)
[2019-10-13] MEDS: SUCRALFATE 1 G/10 ML UDC PO SCH ×4 (06:03→20:05)
[2019-10-13 07:28] LABS: CHLORIDE 110 mEq/L (98-107)
[2019-10-13 07:29] LABS: BASOPHILS % 0.8 % (0.0-2.0); EOSINOPHILS % 2.6 % (0.0-5.0); HEMATOCRIT. 22.7 % (42.0-52.0); HEMOGLOBIN. 7.8 g/dL (14.0-18.0); LYMPHOCYTES % 31.5 % (20.0-50.0); MEAN CORPUSCULAR VOLUME 90.6 fL (80.0-94.0); MEAN PLATELET VOLUME 6.4 fl (7.4-10.4); MONOCYTES % 7.9 % (2.0-8.0); NEUTROPHILS % 57.2 % (40.0-76.0); PLATELET 300 x1000/uL (130-400); RED BLOOD CELL COUNT 2.51 mill/uL (4.7-6.1); RED CELL DISTRIBUTION WIDTH 16.4 % (11.6-14.6)
[2019-10-13] MEDS: PANTOPRAZOLE SODIUM 40 MG/VIAL IV SCH ×2 (08:29→20:05)
[2019-10-14] VITALS (12 sets, daily range): BP systolic 110–155; BP diastolic 49–92
[2019-10-14] MEDS: MORPHINE SULFATE 2 MG/ML CPJ (NOT FOR IM USE) IV PRN ×5 (00:02→20:26)
[2019-10-14] MEDS: DIPHENHYDRAMINE 50MG/ML VIAL IV PRN (01:20)
[2019-10-14] MEDS: SUCRALFATE 1 G/10 ML UDC PO SCH ×4 (06:50→20:18)
[2019-10-14] MEDS: PANTOPRAZOLE SODIUM 40 MG/VIAL IV SCH ×2 (08:44→20:18)
[2019-10-14 10:54] LABS: HEMATOCRIT 24.1 % (42.0-52.0); HEMOGLOBIN 8.2 g/dL (14.0-18.0); MEAN CORPUSCULAR HEMOGLOBIN 30.9 pg (28.0-32.0); MEAN CORPUSCULAR VOLUME 90.6 fL (80.0-94.0); PLATELET 317 x1000/uL (130-400); RED BLOOD CELL COUNT 2.66 mill/uL (4.7-6.1); RED CELL DISTRIBUTION WIDTH 16.5 % (11.6-14.6)
[2019-10-14] MEDS: SODIUM CHLORIDE 0.45% 1,000 ML IV SCH (18:16)
[2019-10-15] VITALS (12 sets, daily range): BP systolic 111–151; BP diastolic 60–91
[2019-10-15] MEDS: MORPHINE SULFATE 2 MG/ML CPJ (NOT FOR IM USE) IV PRN ×5 (00:23→22:53)
[2019-10-15] MEDS: DIPHENHYDRAMINE 50MG/ML VIAL IV PRN (01:07)
[2019-10-15] MEDS: SUCRALFATE 1 G/10 ML UDC PO SCH ×4 (06:08→20:30)
[2019-10-15 07:04] LABS: BASOPHILS % 1.1 % (0.0-2.0); EOSINOPHILS % 1.5 % (0.0-5.0); HEMATOCRIT. 24.9 % (42.0-52.0); HEMOGLOBIN. 8.6 g/dL (14.0-18.0); MEAN CORPUSCULAR HEMOGLOBIN 31.3 pg (28.0-32.0); MEAN CORPUSCULAR VOLUME 90.6 fL (80.0-94.0); MEAN PLATELET VOLUME 7.2 fl (7.4-10.4); MONOCYTES % 13.9 % (2.0-8.0); NEUTROPHILS % 64.5 % (40.0-76.0); PLATELET 311 x1000/uL (130-400); RED BLOOD CELL COUNT 2.75 mill/uL (4.7-6.1); RED CELL DISTRIBUTION WIDTH 16.3 % (11.6-14.6)
[2019-10-15 07:30] LABS: CHLORIDE 105 mEq/L (98-107)
[2019-10-15] MEDS: PANTOPRAZOLE SODIUM 40 MG/VIAL IV SCH ×2 (08:34→20:30)
[2019-10-15] MEDS: SODIUM CHLORIDE 0.45% 1,000 ML IV SCH (13:24)
[2019-10-16] VITALS (12 sets, daily range): BP systolic 108–133; BP diastolic 59–90
[2019-10-16] MEDS: DIPHENHYDRAMINE 50MG/ML VIAL IV PRN (01:00)
[2019-10-16] MEDS: MORPHINE SULFATE 2 MG/ML CPJ (NOT FOR IM USE) IV PRN (04:37)
[2019-10-16 05:54] LABS: HEMATOCRIT. 26.1 % (42.0-52.0); HEMOGLOBIN. 8.7 g/dL (14.0-18.0); MEAN CORPUSCULAR HEMOGLOBIN 30.2 pg (28.0-32.0); MEAN CORPUSCULAR VOLUME 90.4 fL (80.0-94.0); MEAN PLATELET VOLUME 6.6 fl (7.4-10.4); PLATELET 335 x1000/uL (130-400); RED BLOOD CELL COUNT 2.89 mill/uL (4.7-6.1); RED CELL DISTRIBUTION WIDTH 16.3 % (11.6-14.6)
[2019-10-16] MEDS: SUCRALFATE 1 G/10 ML UDC PO SCH ×4 (06:00→21:21)
[2019-10-16] MEDS: PANTOPRAZOLE SODIUM 40 MG/VIAL IV SCH (08:59)
[2019-10-16] MEDS ORDERED: DIPHENHYDRAMINE 50MG CAPSULE PO PRN (09:30)
[2019-10-16] MEDS: LEVOFLOXACIN 500MG TABLET PO SCH (13:41)
[2019-10-16 14:50] LABS: PLATELET ESTIMATE NORMAL
[2019-10-16] MEDS: HYDROCODONE/ACETAMINOPHEN 5/325MG TABLET PO PRN (21:20)
[2019-10-17] VITALS (11 sets, daily range): BP systolic 104–125; BP diastolic 49–82
[2019-10-17] MEDS: PANTOPRAZOLE 40MG DR TABLET PO SCH (06:05)
[2019-10-17] MEDS: SUCRALFATE 1 G/10 ML UDC PO SCH ×4 (06:05→20:23)
[2019-10-17] MEDS: HYDROCODONE/ACETAMINOPHEN 5/325MG TABLET PO PRN ×3 (06:06→22:33)
[2019-10-17] MEDS: LEVOFLOXACIN 500MG TABLET PO SCH (11:30)
[2019-10-18] VITALS (10 sets, daily range): BP systolic 104–140; BP diastolic 62–73
[2019-10-18] MEDS: SUCRALFATE 1 G/10 ML UDC PO SCH ×3 (06:11→16:50)
[2019-10-18] MEDS: PANTOPRAZOLE 40MG DR TABLET PO SCH (06:11)
[2019-10-18 07:18] LABS: BASOPHILS % 0.7 % (0.0-2.0); HEMATOCRIT. 27.6 % (42.0-52.0); HEMOGLOBIN. 9.2 g/dL (14.0-18.0); LYMPHOCYTES % 37.6 % (20.0-50.0); MEAN CORPUSCULAR HEMOGLOBIN 29.6 pg (28.0-32.0); MEAN CORPUSCULAR VOLUME 89.2 fL (80.0-94.0); MEAN PLATELET VOLUME 6.4 fl (7.4-10.4); MONOCYTES % 10.5 % (2.0-8.0); NEUTROPHILS % 50.2 % (40.0-76.0); PLATELET 370 x1000/uL (130-400); RED BLOOD CELL COUNT 3.09 mill/uL (4.7-6.1); RED CELL DISTRIBUTION WIDTH 15.6 % (11.6-14.6)
[2019-10-18 07:28] LABS: CHLORIDE 107 mEq/L (98-107)
[2019-10-18] MEDS: LEVOFLOXACIN 500MG TABLET PO SCH (10:46)
[2019-10-18] MEDS: HYDROCODONE/ACETAMINOPHEN 5/325MG TABLET PO PRN (10:48)
== END 2019-10-18 18:17 | disposition left against medical advice (07) | DRG 241 ==
LOC: ER 04:03 → ENRESERV 08:19 → 5WST 09:34 → CVICU 10-11 07:41 → 3WST 10-11 18:10
PROVIDERS: ADMIT Internal Medicine; ATTEND Internal Medicine
PROC: 30233N1 Transfusion of Nonautologous Red Blood Cells into Peripheral Vein, Percutaneous Approach (ICD-10-PCS; 2019-10-06)
PROC: 0DB68ZX Excision of Stomach, Via Natural or Artificial Opening Endoscopic, Diagnostic (ICD-10-PCS; principal; 2019-10-08)
DX: K29.61 Other gastritis with bleeding (principal); R65.10 Systemic inflammatory response syndrome (SIRS) of non-infectious origin without acute organ dysfunction; K21.9 Gastro-esophageal reflux disease without esophagitis; J18.9 Pneumonia, unspecified organism; F10.20 Alcohol dependence, uncomplicated; D50.9 Iron deficiency anemia, unspecified; E46 Unspecified protein-calorie malnutrition; D72.829 Elevated white blood cell count, unspecified; Z20.828 Contact with and (suspected) exposure to other viral communicable diseases; I10 Essential (primary) hypertension; I25.10 Atherosclerotic heart disease of native coronary artery without angina pectoris; Z53.29 Procedure and treatment not carried out because of patient's decision for other reasons; J98.11 Atelectasis; Z91.19 Patient's noncompliance with other medical treatment and regimen; Z93.4 Other artificial openings of gastrointestinal tract status; Z68.22 Body mass index [BMI] 22.0-22.9, adult; Z79.899 Other long term (current) drug therapy
CPT/HCPCS: 36415; 71045; 74177; 80048; 80053; 80061; 80305; 80320; 81003; 82270; 82962; 83605; 83880; 84439; 84443; 84484; 85014; 85018; 85025; 85027; 86850; 86900; 86920; 87635; 88305; 88313; 93005; 99291; C9113; J1200; J2060; J2270; J2405; J2704; J3490; J7030; P9016; Q9967; G0480